=== PATIENT | female | born 1955 | race African-American/Black ===

== ENCOUNTER 2017-08-09 18:56 | Emergency (ER) | payer MEDICAID ==
[~2017-08-09] VITALS: Ht 152.4 cm; Wt 127.0 kg
[~2017-08-09 18:56] MED LIST: ACET-1465 PO; AMLO10TA80 PO; ATEN-42 PO; DICL75TA5 PO; FERR-63 PO; FLUT250D INH; FOLI-43 PO; FURO40TA5 PO; LEVO100T9 PO; LISI40TA4 PO; METH2.5T PO; POTA10CA42 PO; PROAIR 90 MCG INH; RANI150T7 PO; SILV20CR13 TP; TRAM50TA3 PO; VALS160T23 PO; VIT D2 PO
[2017-08-09 20:17] LABS: BASOPHILS % 1.6 % (0.0-2.0); EOSINOPHILS % 4.6 % (0.0-5.0); HEMATOCRIT. 32.6 % (36.0-48.0); HEMOGLOBIN. 10.4 g/dL (12.0-16.0); LYMPHOCYTES % 38.1 % (20.0-50.0); MEAN CORPUSCULAR HEMOGLOBIN 28.1 pg (28.0-32.0); MEAN CORPUSCULAR VOLUME 88.3 fL (81.0-99.0); MEAN PLATELET VOLUME 7.7 fl (7.4-10.4); NEUTROPHILS % 45.7 % (40.0-76.0); PLATELET 262 x1000/uL (130-400); RED BLOOD CELL COUNT 3.69 mill/uL (4.2-5.4); RED CELL DISTRIBUTION WIDTH 18.4 % (11.6-14.6)
[2017-08-09 20:19] LABS: CHLORIDE 105 mEq/L (98-107); PROTHROMBIN TIME 10.6 sec (9.4-11.6)
[2017-08-09 20:22] LABS: CARBON DIOXIDE 32 mEq/L (21-32)
[2017-08-09 20:28] LABS: TROPONIN I < 0.02 ng/mL (0.00-0.04)
[2017-08-10 08:36] VITALS: BP 143/77
== END 2017-08-10 08:36 | disposition home or self-care (01) ==
LOC: ER 19:44
DX: F41.0 Panic disorder [episodic paroxysmal anxiety] (principal); I11.0 Hypertensive heart disease with heart failure; I50.9 Heart failure, unspecified; R06.02 Shortness of breath; Z88.5 Allergy status to narcotic agent
CPT/HCPCS: 36415; 71010; 80053; 83880; 84484; 85025; 85610; 93005; 99285; Z7610

== ENCOUNTER 2018-11-26 21:08 | Inpatient (IN) | payer MEDICAID ==
[~2018-11-26] VITALS: Ht 149.9 cm; Wt 85.7 kg
[~2018-11-26 21:08] MED LIST changes: -VALS160T23 PO; +VALS160T28 PO
[2018-11-26] MEDS ORDERED: PREDNISONE 20MG TABLET PO STA (23:11)
[2018-11-26] MEDS ORDERED: IPRATROPIUM BROMIDE (0.02%) 0.5MG/2.5ML NEB HHN STA (23:11)
[2018-11-26] MEDS ORDERED: ALBUTEROL (0.083%) 2.5MG/3ML NEB HHN STA (23:11)
[2018-11-26 23:50] LABS: HEMATOCRIT. 33.7 % (36.0-48.0); HEMOGLOBIN. 10.1 g/dL (12.0-16.0); MEAN CORPUSCULAR HEMOGLOBIN 26.2 pg (28.0-32.0); MEAN CORPUSCULAR VOLUME 87.4 fL (81.0-99.0); MEAN PLATELET VOLUME 8.5 fl (7.4-10.4); PLATELET 281 x1000/uL (130-400); RED BLOOD CELL COUNT 3.86 mill/uL (4.2-5.4); RED CELL DISTRIBUTION WIDTH 22.9 % (11.6-14.6)
[2018-11-26 23:58] LABS: CHLORIDE 103 mEq/L (98-107)
[2018-11-27 04:26] LABS: NUCLEATED RED BLOOD CELLS 1 /100 WBC; PLATELET ESTIMATE NORMAL
[2018-11-27 05:00] VITALS: BP 95/66
[2018-11-27] MEDS ORDERED: METF-416 PO (05:42)
[2018-11-27] MEDS ORDERED: ONDANSETRON HCL 4MG/2ML INJ IV PRN (07:45)
[2018-11-27] MEDS ORDERED: HYDROCODONE/ACETAMINOPHEN 5/325MG TABLET PO PRN (07:45)
[2018-11-27] MEDS ORDERED: ACETAMINOPHEN 325MG TABLET PO PRN (07:45)
[2018-11-27] MEDS ORDERED: CLONIDINE 0.1MG TABLET PO PRN (07:45)
[2018-11-27 08:00] VITALS: BP 100/42
[2018-11-27] MEDS ORDERED: IPRATROPIUM/ALBUTEROL 0.5-3(2.5)MG/3ML NEB INH PRN (08:00)
[2018-11-27] MEDS: INSULIN LISPRO 100 UNITS/ML SUBCUT SCH ×4 (08:23→21:38)
[2018-11-27] MEDS: BLOOD SUGAR DIAGNOSTIC STRIP TEST SCH ×4 (09:00→21:14)
[2018-11-27] MEDS: CEFTRIAXONE 1 G PREMIX 50 ML IV SCH (09:00)
[2018-11-27 12:00] VITALS: BP 157/52
[2018-11-27] MEDS: NYSTATIN POWDER 15GM TOP SCH ×2 (14:33→17:00)
[2018-11-27] MEDS: HEPARIN 5000 UNITS/ML VIAL SUBCUT SCH ×2 (14:33→21:00)
[2018-11-27 16:00] VITALS: BP 98/58
[2018-11-27 20:00] VITALS: BP 107/55
[2018-11-28] VITALS: BP_SYST 118; BP_SYST 139; BP_DIAS 57; BP_DIAS 63
[2018-11-28 04:00] VITALS: BP 108/50
[2018-11-28] MEDS: BLOOD SUGAR DIAGNOSTIC STRIP TEST SCH ×4 (07:21→20:48)
[2018-11-28] MEDS: INSULIN LISPRO 100 UNITS/ML SUBCUT SCH ×4 (07:22→21:00)
[2018-11-28 08:00] VITALS: BP 102/60
[2018-11-28 08:02] LABS: BASOPHILS % 0.4 % (0.0-2.0); EOSINOPHILS % 0.3 % (0.0-5.0); HEMATOCRIT. 31.9 % (36.0-48.0); HEMOGLOBIN. 9.4 g/dL (12.0-16.0); LYMPHOCYTES % 7.7 % (20.0-50.0); MEAN CORPUSCULAR HEMOGLOBIN 25.7 pg (28.0-32.0); MEAN CORPUSCULAR VOLUME 87.6 fL (81.0-99.0); MEAN PLATELET VOLUME 8.7 fl (7.4-10.4); MONOCYTES % 7.9 % (2.0-8.0); NEUTROPHILS % 83.7 % (40.0-76.0); PLATELET 279 x1000/uL (130-400); RED BLOOD CELL COUNT 3.65 mill/uL (4.2-5.4); RED CELL DISTRIBUTION WIDTH 22.3 % (11.6-14.6)
[2018-11-28 08:11] LABS: CHLORIDE 103 mEq/L (98-107)
[2018-11-28] MEDS: CEFTRIAXONE 1 G PREMIX 50 ML IV SCH (08:56)
[2018-11-28] MEDS: NYSTATIN POWDER 15GM TOP SCH ×3 (08:57→17:24)
[2018-11-28] MEDS: LISINOPRIL 40MG TABLET PO SCH (10:30)
[2018-11-28] MEDS ORDERED: FUROSEMIDE 40MG TABLET PO SCH (10:30)
[2018-11-28] MEDS ORDERED: AMLODIPINE 10MG TABLET PO SCH (10:30)
[2018-11-28] MEDS ORDERED: METHOTREXATE SODIUM 2 . 5MG TABLET PO SCH (11:30)
[2018-11-28] MEDS: FERROUS SULFATE 325MG TABLET PO SCH (12:39)
[2018-11-28] MEDS: SILVER SULFADIAZINE 1% CREAM 25GM TOP SCH (12:40)
[2018-11-28] MEDS: SODIUM CHLORIDE 0.45% 1,000 ML IV SCH (12:40)
[2018-11-28 13:11] VITALS: BP 99/55
[2018-11-28 13:17] LABS: CREATINE KINASE 188 IU/L (26-192)
[2018-11-28 16:00] VITALS: BP 98/55
[2018-11-28 20:00] VITALS: BP 134/63
[2018-11-28] MEDS: DILTIAZEM HCL 30MG TABLET PO SCH (21:19)
[2018-11-28] MEDS: HEPARIN 5000 UNITS/ML VIAL SUBCUT SCH ×2 (21:20)
[2018-11-29] VITALS: BP 154/61
[2018-11-29] MEDS: SODIUM CHLORIDE 0.45% 1,000 ML IV SCH ×2 (02:40→10:19)
[2018-11-29 04:00] VITALS: BP 126/64
[2018-11-29] MEDS: DILTIAZEM HCL 30MG TABLET PO SCH ×3 (06:00→21:35)
[2018-11-29] MEDS: BLOOD SUGAR DIAGNOSTIC STRIP TEST SCH ×4 (06:06→20:27)
[2018-11-29] MEDS: LEVOTHYROXINE SODIUM 100MCG TABLET PO SCH (06:38)
[2018-11-29 07:32] LABS: BASOPHILS % 0.9 % (0.0-2.0); EOSINOPHILS % 2.3 % (0.0-5.0); HEMATOCRIT. 34.1 % (36.0-48.0); HEMOGLOBIN. 9.9 g/dL (12.0-16.0); LYMPHOCYTES % 7.6 % (20.0-50.0); MEAN CORPUSCULAR HEMOGLOBIN 25.8 pg (28.0-32.0); MEAN CORPUSCULAR VOLUME 88.8 fL (81.0-99.0); MEAN PLATELET VOLUME 8.7 fl (7.4-10.4); MONOCYTES % 8.2 % (2.0-8.0); PLATELET 279 x1000/uL (130-400); RED BLOOD CELL COUNT 3.84 mill/uL (4.2-5.4); RED CELL DISTRIBUTION WIDTH 22.6 % (11.6-14.6)
[2018-11-29] MEDS: INSULIN LISPRO 100 UNITS/ML SUBCUT SCH ×4 (07:50→20:27)
[2018-11-29 08:00] VITALS: BP 96/57
[2018-11-29] MEDS ORDERED: METHOTREXATE SODIUM 2 . 5MG TABLET PO SCH (09:00)
[2018-11-29] MEDS: SILVER SULFADIAZINE 1% CREAM 25GM TOP SCH (09:00)
[2018-11-29] MEDS: LISINOPRIL 40MG TABLET PO SCH (09:00)
[2018-11-29] MEDS: HEPARIN 5000 UNITS/ML VIAL SUBCUT SCH ×2 (10:20→20:19)
[2018-11-29] MEDS: FERROUS SULFATE 325MG TABLET PO SCH (10:20)
[2018-11-29] MEDS: CEFTRIAXONE 1 G PREMIX 50 ML IV SCH (10:21)
[2018-11-29] MEDS: NYSTATIN POWDER 15GM TOP SCH ×3 (10:21→17:19)
[2018-11-29 12:00] VITALS: BP 98/60
[2018-11-29 16:00] VITALS: BP 100/56
[2018-11-29 20:00] VITALS: BP 136/70
[2018-11-30] VITALS (53 sets, daily range): BP systolic 80–158; BP diastolic 38–82
[2018-11-30] MEDS: DILTIAZEM HCL 30MG TABLET PO SCH ×3 (05:42→22:00)
[2018-11-30] MEDS: LEVOTHYROXINE SODIUM 100MCG TABLET PO SCH ×2 (06:30→07:50)
[2018-11-30] MEDS: BLOOD SUGAR DIAGNOSTIC STRIP TEST SCH ×5 (06:30→21:24)
[2018-11-30 07:42] LABS: BG BASE EXCESS 4.6 mmol/L (-2.0-2.0); BG CARBOXYHEMOGLOBIN 1.7 % (0.5-1.5); BG DEOXYHEMOGLOBIN 9.3 % (0.0-5.0); BG FRACTION INSPIRED OXYGEN 100; BG HCO3 ACT 35.9 mmol/L (22.0-26.0); BG METHEMOGLOBIN 0.3 % (0.0-1.5); BG OXYGEN SATURATION 90.5 % (92.0-98.5); BG OXYHEMOGLOBIN 88.7 % (94.0-97.0); BG PCO2 98.6 mmHg (35.0-45.0); BG PH 7.179 (7.350-7.450); BG PO2 71.1 mmHg (75.0-100.0); BG SAMPLE SITE RIGHT RADIAL; BG TOTAL HEMOGLOBIN 12.3 g/dL (12.0-18.0); BG VENT MODE MASK - NRB
[2018-11-30 08:01] LABS: CHLORIDE 103 mEq/L (98-107)
[2018-11-30] MEDS: INSULIN LISPRO 100 UNITS/ML SUBCUT SCH ×4 (08:20→21:59)
[2018-11-30] MEDS ORDERED: MIDAZOLAM HCL 2 MG/2 ML VIAL ONE (08:25)
[2018-11-30] MEDS ORDERED: MIDAZOLAM HCL 2 MG/2 ML VIAL IV SCH (08:30)
[2018-11-30 08:51] LABS: HEMATOCRIT. 38.4 % (36.0-48.0); HEMOGLOBIN. 11.3 g/dL (12.0-16.0); MEAN CORPUSCULAR HEMOGLOBIN 25.8 pg (28.0-32.0); MEAN CORPUSCULAR VOLUME 87.9 fL (81.0-99.0); MEAN PLATELET VOLUME 8.6 fl (7.4-10.4); PLATELET 303 x1000/uL (130-400); RED BLOOD CELL COUNT 4.37 mill/uL (4.2-5.4); RED CELL DISTRIBUTION WIDTH 22.9 % (11.6-14.6)
[2018-11-30] MEDS: LISINOPRIL 40MG TABLET PO SCH (09:00)
[2018-11-30] MEDS: CEFTRIAXONE 1 G PREMIX 50 ML IV SCH (09:51)
[2018-11-30] MEDS: FERROUS SULFATE 325MG TABLET PO SCH (09:51)
[2018-11-30] MEDS: NYSTATIN POWDER 15GM TOP SCH ×3 (09:52→17:00)
[2018-11-30] MEDS: SILVER SULFADIAZINE 1% CREAM 25GM TOP SCH (09:52)
[2018-11-30] MEDS: HEPARIN 5000 UNITS/ML VIAL SUBCUT SCH ×2 (09:52→21:07)
[2018-11-30] MEDS: PROPOFOL 10MG/ML 100ML 100 ML IV PRN ×4 (09:52→19:18)
[2018-11-30] MEDS: NOREPINEPHRINE 4 MG in DEXT 5% WATER 246 ML IV PRN (09:53)
[2018-11-30] MEDS ORDERED: LIDOCAINE HCL 1% 20ML VIAL (Pyxis) INJ ONE (10:41)
[2018-11-30] MEDS ORDERED: FUROSEMIDE 40MG/4ML VIAL IVP NR (10:45)
[2018-11-30 11:09] LABS: PLATELET ESTIMATE NORMAL
[2018-11-30] MEDS: IPRATROPIUM/ALBUTEROL 0.5-3(2.5)MG/3ML NEB HHN SCH ×3 (11:41→20:39)
[2018-11-30] MEDS ORDERED: SUCCINYLCHOLINE CHLORIDE 200MG/10ML IV ONE (11:42)
[2018-11-30] MEDS ORDERED: ETOMIDATE 2MG/ML 10ML VIAL IV ONE (11:42)
[2018-11-30 11:43] LABS: BG BASE EXCESS 3.5 mmol/L (-2.0-2.0); BG CARBOXYHEMOGLOBIN 0.9 % (0.5-1.5); BG DEOXYHEMOGLOBIN 0.6 % (0.0-5.0); BG FRACTION INSPIRED OXYGEN 100; BG HCO3 ACT 30.7 mmol/L (22.0-26.0); BG METHEMOGLOBIN 0.3 % (0.0-1.5); BG OXYGEN SATURATION 99.4 % (92.0-98.5); BG OXYHEMOGLOBIN 98.2 % (94.0-97.0); BG PCO2 60.2 mmHg (35.0-45.0); BG PH 7.326 (7.350-7.450); BG PO2 244.4 mmHg (75.0-100.0); BG SAMPLE SITE LEFT RADIAL; BG TIDAL VOLUME(mL) 550 mL; BG TOTAL HEMOGLOBIN 11.3 g/dL (12.0-18.0); BG VENT MODE VENT - A/C; BG VENT RATE 18 set
[2018-11-30] MEDS: FAMOTIDINE 20MG/2ML VIAL IV SCH ×2 (11:51→21:06)
[2018-11-30] MEDS: LORATADINE 10MG TABLET PO SCH (11:51)
[2018-11-30] MEDS: METHYLPREDNISOLONE SOD SUCC 40 MG/ML VIAL IV SCH ×2 (11:51→18:40)
[2018-11-30] MEDS: PIPERACILLIN/TAZ 3.375G PREMIX 50 ML IV SCH ×2 (12:03→18:40)
[2018-11-30 12:39] LABS: INR 1.1; PARTIAL THROMBOPLASTIN TIME 22.6 sec (23.4-31.0); PROTHROMBIN TIME 10.6 sec (9.1-11.1)
[2018-11-30] MEDS ORDERED: IOHEXOL-350 100 ML BOTTLE ONE (13:25)
[2018-11-30] MEDS: ACETYLCYSTEINE 100MG/ML 10% VIAL 4ML INH SCH (16:00)
[2018-11-30] MEDS: MONTELUKAST SODIUM 10MG TABLET PO SCH (18:40)
[2018-11-30 19:48] LABS: CLARITY URINE CLEAR (CLEAR); COLOR URINE YELLOW (YELLOW); KETONES URINE NEGATIVE (NEGATIVE); LEUKOCYTE ESTERASE URINE NEGATIVE (NEGATIVE); NITRITE URINE NEGATIVE (NEGATIVE); OCCULT BLOOD URINE TRACE (NEGATIVE); PROTEIN URINE NEGATIVE (NEGATIVE); SPECIFIC GRAVITY URINE 1.014 (1.005-1.030); UROBILINOGEN URINE 0.2 E.U./dL (0.2-1.0)
[2018-12-01] VITALS (81 sets, daily range): BP systolic 49–149; BP diastolic 26–88
[2018-12-01] MEDS: IPRATROPIUM/ALBUTEROL 0.5-3(2.5)MG/3ML NEB HHN SCH ×5 (00:16→15:54)
[2018-12-01] MEDS: ACETYLCYSTEINE 100MG/ML 10% VIAL 4ML INH SCH ×2 (00:16→07:29)
[2018-12-01] MEDS: PROPOFOL 10MG/ML 100ML 100 ML IV PRN ×3 (00:17→20:48)
[2018-12-01] MEDS: METHYLPREDNISOLONE SOD SUCC 40 MG/ML VIAL IV SCH ×4 (00:22→22:54)
[2018-12-01] MEDS: PIPERACILLIN/TAZ 3.375G PREMIX 50 ML IV SCH ×4 (00:27→18:54)
[2018-12-01 05:44] LABS: CHLORIDE 101 mEq/L (98-107)
[2018-12-01] MEDS: DILTIAZEM HCL 30MG TABLET PO SCH ×3 (06:00→22:53)
[2018-12-01 07:41] LABS: HEMATOCRIT 32.4 % (36.0-48.0); HEMOGLOBIN 9.6 g/dL (12.0-16.0); MEAN CORPUSCULAR HEMOGLOBIN 25.1 pg (28.0-32.0); MEAN CORPUSCULAR VOLUME 84.6 fL (81.0-99.0); PLATELET 255 x1000/uL (130-400); RED BLOOD CELL COUNT 3.83 mill/uL (4.2-5.4)
[2018-12-01] MEDS: BLOOD SUGAR DIAGNOSTIC STRIP TEST SCH ×3 (07:50→18:54)
[2018-12-01 08:10] LABS: BG BASE EXCESS 7.6 mmol/L (-2.0-2.0); BG CARBOXYHEMOGLOBIN 0.7 % (0.5-1.5); BG DEOXYHEMOGLOBIN 2.4 % (0.0-5.0); BG FRACTION INSPIRED OXYGEN 50; BG HCO3 ACT 31.3 mmol/L (22.0-26.0); BG METHEMOGLOBIN 0.2 % (0.0-1.5); BG OXYGEN SATURATION 97.6 % (92.0-98.5); BG OXYHEMOGLOBIN 96.7 % (94.0-97.0); BG PCO2 40.6 mmHg (35.0-45.0); BG PH 7.505 (7.350-7.450); BG PO2 94.9 mmHg (75.0-100.0); BG SAMPLE SITE RIGHT RADIAL; BG TIDAL VOLUME(mL) 550 mL; BG TOTAL HEMOGLOBIN 10.4 g/dL (12.0-18.0); BG VENT MODE VENT - A/C; BG VENT RATE 18 set
[2018-12-01] MEDS: FAMOTIDINE 20MG/2ML VIAL IV SCH ×2 (08:50→20:48)
[2018-12-01] MEDS: CEFTRIAXONE 1 G PREMIX 50 ML IV SCH (08:51)
[2018-12-01] MEDS: INSULIN LISPRO 100 UNITS/ML SUBCUT SCH ×3 (08:53→18:54)
[2018-12-01] MEDS: LORATADINE 10MG TABLET PO SCH (08:53)
[2018-12-01] MEDS: FERROUS SULFATE 325MG TABLET PO SCH (08:54)
[2018-12-01] MEDS: SILVER SULFADIAZINE 1% CREAM 25GM TOP SCH (08:54)
[2018-12-01] MEDS: LISINOPRIL 40MG TABLET PO SCH (08:54)
[2018-12-01] MEDS: LEVOTHYROXINE SODIUM 100MCG TABLET PO SCH (08:54)
[2018-12-01] MEDS: HEPARIN 5000 UNITS/ML VIAL SUBCUT SCH ×2 (08:54→21:00)
[2018-12-01] MEDS: NYSTATIN POWDER 15GM TOP SCH ×3 (08:54→17:00)
[2018-12-01] MEDS: MONTELUKAST SODIUM 10MG TABLET PO SCH (17:00)
[2018-12-01] MEDS: DOCUSATE SODIUM SUGAR FREE 100MG/10ML UDC NG SCH (20:20)
[2018-12-01] MEDS ORDERED: INSULIN LISPRO 100 UNITS/ML SUBCUT SCH (21:00)
[2018-12-02] VITALS (17 sets, daily range): BP systolic 95–121; BP diastolic 59–84
[2018-12-02] MEDS: PIPERACILLIN/TAZ 3.375G PREMIX 50 ML IV SCH ×4 (00:26→18:15)
[2018-12-02] MEDS: INSULIN LISPRO 100 UNITS/ML SUBCUT SCH ×4 (00:27→18:00)
[2018-12-02] MEDS: BLOOD SUGAR DIAGNOSTIC STRIP TEST SCH ×4 (00:27→18:01)
[2018-12-02] MEDS: ACETYLCYSTEINE 100MG/ML 10% VIAL 4ML INH SCH ×3 (00:38→16:02)
[2018-12-02] MEDS: IPRATROPIUM/ALBUTEROL 0.5-3(2.5)MG/3ML NEB HHN SCH ×6 (00:38→20:44)
[2018-12-02] MEDS: PROPOFOL 10MG/ML 100ML 100 ML IV PRN ×6 (01:23→22:02)
[2018-12-02] MEDS: DILTIAZEM HCL 30MG TABLET PO SCH ×3 (06:00→22:03)
[2018-12-02] MEDS: METHYLPREDNISOLONE SOD SUCC 40 MG/ML VIAL IV SCH ×3 (06:20→22:03)
[2018-12-02 07:02] LABS: HEMATOCRIT. 31.5 % (36.0-48.0); HEMOGLOBIN. 9.7 g/dL (12.0-16.0); MEAN CORPUSCULAR HEMOGLOBIN 25.8 pg (28.0-32.0); MEAN CORPUSCULAR VOLUME 84.4 fL (81.0-99.0); MEAN PLATELET VOLUME 8.5 fl (7.4-10.4); PLATELET 243 x1000/uL (130-400); RED BLOOD CELL COUNT 3.74 mill/uL (4.2-5.4); RED CELL DISTRIBUTION WIDTH 22.8 % (11.6-14.6)
[2018-12-02 08:10] LABS: PLATELET ESTIMATE NORMAL
[2018-12-02 08:57] LABS: BG BASE EXCESS 6.9 mmol/L (-2.0-2.0); BG CARBOXYHEMOGLOBIN 0.5 % (0.5-1.5); BG DEOXYHEMOGLOBIN 2.5 % (0.0-5.0); BG FRACTION INSPIRED OXYGEN 40; BG HCO3 ACT 31.3 mmol/L (22.0-26.0); BG METHEMOGLOBIN 0.3 % (0.0-1.5); BG OXYGEN SATURATION 97.5 % (92.0-98.5); BG OXYHEMOGLOBIN 96.7 % (94.0-97.0); BG PCO2 44.1 mmHg (35.0-45.0); BG PH 7.469 (7.350-7.450); BG PO2 96.3 mmHg (75.0-100.0); BG SAMPLE SITE RIGHT RADIAL; BG TIDAL VOLUME(mL) 550 mL; BG VENT MODE VENT - A/C; BG VENT RATE 14 set
[2018-12-02] MEDS ORDERED: POTASSIUM CHLORIDE 20MEQ/PACKET NG NR (09:45)
[2018-12-02] MEDS ORDERED: LACTULOSE 20G/30ML UDC PO NR (10:00)
[2018-12-02] MEDS ORDERED: BISACODYL 10MG SUPP PR NR (10:00)
[2018-12-02] MEDS ORDERED: FUROSEMIDE 40MG/4ML VIAL IVP NR (10:05)
[2018-12-02] MEDS: FAMOTIDINE 20MG/2ML VIAL IV SCH (10:50)
[2018-12-02] MEDS: HEPARIN 5000 UNITS/ML VIAL SUBCUT SCH ×2 (10:50→22:02)
[2018-12-02] MEDS: DOCUSATE SODIUM SUGAR FREE 100MG/10ML UDC NG SCH (10:50)
[2018-12-02] MEDS: LEVOTHYROXINE SODIUM 100MCG TABLET PO SCH (10:51)
[2018-12-02] MEDS: LORATADINE 10MG TABLET PO SCH (10:51)
[2018-12-02] MEDS: FERROUS SULFATE 325MG TABLET PO SCH (10:51)
[2018-12-02] MEDS: SILVER SULFADIAZINE 1% CREAM 25GM TOP SCH (11:20)
[2018-12-02] MEDS: NYSTATIN POWDER 15GM TOP SCH ×3 (11:20→17:55)
[2018-12-02] MEDS: CEFTRIAXONE 1 G PREMIX 50 ML IV SCH (12:45)
[2018-12-02] MEDS: INSULIN GLARGINE UD 100 UNITS/ML SYR SUBCUT SCH ×2 (15:36→22:05)
[2018-12-02] MEDS: MONTELUKAST SODIUM 10MG TABLET PO SCH (18:15)
[2018-12-03] VITALS (40 sets, daily range): BP systolic 105–144; BP diastolic 49–83
[2018-12-03] MEDS: IPRATROPIUM/ALBUTEROL 0.5-3(2.5)MG/3ML NEB HHN SCH ×6 (00:27→20:17)
[2018-12-03] MEDS: ACETYLCYSTEINE 100MG/ML 10% VIAL 4ML INH SCH ×4 (00:28→15:26)
[2018-12-03] MEDS: INSULIN LISPRO 100 UNITS/ML SUBCUT SCH ×4 (00:54→18:00)
[2018-12-03] MEDS: PROPOFOL 10MG/ML 100ML 100 ML IV PRN ×2 (00:55→05:11)
[2018-12-03] MEDS: PIPERACILLIN/TAZ 3.375G PREMIX 50 ML IV SCH ×4 (03:30→18:45)
[2018-12-03] MEDS: DILTIAZEM HCL 30MG TABLET PO SCH ×3 (05:04→21:12)
[2018-12-03] MEDS: METHYLPREDNISOLONE SOD SUCC 40 MG/ML VIAL IV SCH ×3 (05:04→21:11)
[2018-12-03] MEDS: BLOOD SUGAR DIAGNOSTIC STRIP TEST SCH ×4 (06:08→18:43)
[2018-12-03 06:50] LABS: HEMATOCRIT. 33.1 % (36.0-48.0); HEMOGLOBIN. 9.9 g/dL (12.0-16.0); MEAN CORPUSCULAR HEMOGLOBIN 25.3 pg (28.0-32.0); MEAN CORPUSCULAR VOLUME 84.4 fL (81.0-99.0); MEAN PLATELET VOLUME 7.9 fl (7.4-10.4); PLATELET 231 x1000/uL (130-400); RED BLOOD CELL COUNT 3.93 mill/uL (4.2-5.4); RED CELL DISTRIBUTION WIDTH 23.3 % (11.6-14.6)
[2018-12-03 06:59] LABS: CHLORIDE 102 mEq/L (98-107)
[2018-12-03] MEDS: LEVOTHYROXINE SODIUM 100MCG TABLET PO SCH (07:50)
[2018-12-03 08:14] LABS: BG BASE EXCESS 9.7 mmol/L (-2.0-2.0); BG CARBOXYHEMOGLOBIN 0.5 % (0.5-1.5); BG DEOXYHEMOGLOBIN 2.8 % (0.0-5.0); BG FRACTION INSPIRED OXYGEN 40; BG HCO3 ACT 35.4 mmol/L (22.0-26.0); BG METHEMOGLOBIN 0.3 % (0.0-1.5); BG OXYGEN SATURATION 97.2 % (92.0-98.5); BG OXYHEMOGLOBIN 96.4 % (94.0-97.0); BG PCO2 53.9 mmHg (35.0-45.0); BG PH 7.435 (7.350-7.450); BG PO2 102.2 mmHg (75.0-100.0); BG PRESSURE SUPPORT 12; BG SAMPLE SITE RIGHT RADIAL; BG TIDAL VOLUME(mL) 550 mL; BG TOTAL HEMOGLOBIN 10.3 g/dL (12.0-18.0); BG VENT MODE VENT - SIMV; BG VENT RATE 10 set
[2018-12-03] MEDS: NYSTATIN POWDER 15GM TOP SCH ×3 (09:00→17:00)
[2018-12-03] MEDS: CEFTRIAXONE 1 G PREMIX 50 ML IV SCH (09:36)
[2018-12-03] MEDS: LORATADINE 10MG TABLET PO SCH (09:36)
[2018-12-03] MEDS: FAMOTIDINE 20MG/2ML VIAL IV SCH (09:36)
[2018-12-03] MEDS: DOCUSATE SODIUM SUGAR FREE 100MG/10ML UDC NG SCH (09:36)
[2018-12-03] MEDS: FERROUS SULFATE 325MG TABLET PO SCH (09:37)
[2018-12-03] MEDS: HEPARIN 5000 UNITS/ML VIAL SUBCUT SCH ×2 (09:38→21:12)
[2018-12-03] MEDS: SILVER SULFADIAZINE 1% CREAM 25GM TOP SCH (09:39)
[2018-12-03 10:10] LABS: PLATELET ESTIMATE NORMAL
[2018-12-03] MEDS ORDERED: POTASSIUM CHLORIDE 20MEQ TABLET SR PO SCH (11:30)
[2018-12-03] MEDS: MONTELUKAST SODIUM 10MG TABLET PO SCH (17:00)
[2018-12-03] MEDS: INSULIN GLARGINE UD 100 UNITS/ML SYR SUBCUT SCH (21:22)
[2018-12-03] MEDS: PROPOFOL 10MG/ML 100ML 100 ML IV SCH (23:22)
[2018-12-04] VITALS (49 sets, daily range): BP systolic 110–157; BP diastolic 67–97
[2018-12-04] MEDS: IPRATROPIUM/ALBUTEROL 0.5-3(2.5)MG/3ML NEB HHN SCH ×6 (00:16→20:03)
[2018-12-04] MEDS: ACETYLCYSTEINE 100MG/ML 10% VIAL 4ML INH SCH ×3 (00:17→16:24)
[2018-12-04] MEDS: PIPERACILLIN/TAZ 3.375G PREMIX 50 ML IV SCH ×4 (00:32→17:48)
[2018-12-04] MEDS: BLOOD SUGAR DIAGNOSTIC STRIP TEST SCH ×4 (00:38→18:43)
[2018-12-04] MEDS: INSULIN LISPRO 100 UNITS/ML SUBCUT SCH ×4 (00:43→18:47)
[2018-12-04] MEDS: PROPOFOL 10MG/ML 100ML 100 ML IV SCH ×3 (02:55→14:48)
[2018-12-04 05:56] LABS: HEMATOCRIT. 38.8 % (36.0-48.0); HEMOGLOBIN. 11.6 g/dL (12.0-16.0); MEAN CORPUSCULAR HEMOGLOBIN 25.6 pg (28.0-32.0); MEAN CORPUSCULAR VOLUME 85.6 fL (81.0-99.0); MEAN PLATELET VOLUME 8.5 fl (7.4-10.4); PLATELET 235 x1000/uL (130-400); RED BLOOD CELL COUNT 4.53 mill/uL (4.2-5.4); RED CELL DISTRIBUTION WIDTH 22.7 % (11.6-14.6)
[2018-12-04] MEDS: LEVOTHYROXINE SODIUM 100MCG TABLET PO SCH (06:57)
[2018-12-04] MEDS: METHYLPREDNISOLONE SOD SUCC 40 MG/ML VIAL IV SCH ×3 (06:57→21:12)
[2018-12-04] MEDS: DILTIAZEM HCL 30MG TABLET PO SCH ×3 (06:58→21:13)
[2018-12-04 07:16] LABS: PHOSPHORUS 5.3 mg/dL (2.5-4.9)
[2018-12-04] MEDS: SILVER SULFADIAZINE 1% CREAM 25GM TOP SCH (09:00)
[2018-12-04 09:45] LABS: BG CARBOXYHEMOGLOBIN 1.2 % (0.5-1.5); BG FRACTION INSPIRED OXYGEN 40; BG HCO3 ACT 34.1 mmol/L (22.0-26.0); BG METHEMOGLOBIN 0.3 % (0.0-1.5); BG OXYGEN SATURATION 94.9 % (92.0-98.5); BG OXYHEMOGLOBIN 93.5 % (94.0-97.0); BG PCO2 54.7 mmHg (35.0-45.0); BG PH 7.413 (7.350-7.450); BG PO2 75.9 mmHg (75.0-100.0); BG PRESSURE SUPPORT 12; BG SAMPLE SITE RIGHT RADIAL; BG TIDAL VOLUME(mL) 550 mL; BG TOTAL HEMOGLOBIN 12.5 g/dL (12.0-18.0); BG VENT MODE VENT - SIMV; BG VENT RATE 6 set
[2018-12-04] MEDS: LORATADINE 10MG TABLET PO SCH (09:54)
[2018-12-04] MEDS: FAMOTIDINE 20MG/2ML VIAL IV SCH (09:55)
[2018-12-04] MEDS: FERROUS SULFATE 325MG TABLET PO SCH (09:55)
[2018-12-04] MEDS: DOCUSATE SODIUM SUGAR FREE 100MG/10ML UDC NG SCH (09:55)
[2018-12-04] MEDS: HEPARIN 5000 UNITS/ML VIAL SUBCUT SCH ×2 (09:56→21:12)
[2018-12-04] MEDS: CEFTRIAXONE 1 G PREMIX 50 ML IV SCH (09:56)
[2018-12-04] MEDS: INSULIN GLARGINE UD 100 UNITS/ML SYR SUBCUT SCH ×2 (09:57→21:15)
[2018-12-04] MEDS: NYSTATIN POWDER 15GM TOP SCH ×3 (10:28→17:09)
[2018-12-04 13:40] LABS: PLATELET ESTIMATE NORMAL
[2018-12-04] MEDS ORDERED: POTASSIUM CHLORIDE 20MEQ/PACKET PO NR (15:15)
[2018-12-04] MEDS: MONTELUKAST SODIUM 10MG TABLET PO SCH (17:06)
[2018-12-04] MEDS: PROPOFOL 10MG/ML 100ML 100 ML IV PRN (20:01)
[2018-12-04] MEDS: SILDENAFIL CITRATE 20MG TABLET PO SCH (21:13)
[2018-12-05] VITALS (30 sets, daily range): BP systolic 63–114; BP diastolic 44–69
[2018-12-05] MEDS: IPRATROPIUM/ALBUTEROL 0.5-3(2.5)MG/3ML NEB HHN SCH ×6 (00:26→20:53)
[2018-12-05] MEDS: ACETYLCYSTEINE 100MG/ML 10% VIAL 4ML INH SCH ×3 (00:27→14:00)
[2018-12-05] MEDS: PIPERACILLIN/TAZ 3.375G PREMIX 50 ML IV SCH ×2 (00:30→05:46)
[2018-12-05] MEDS: BLOOD SUGAR DIAGNOSTIC STRIP TEST SCH ×4 (00:30→18:33)
[2018-12-05] MEDS: INSULIN LISPRO 100 UNITS/ML SUBCUT SCH ×4 (00:40→18:00)
[2018-12-05] MEDS: PROPOFOL 10MG/ML 100ML 100 ML IV PRN ×2 (01:06→07:29)
[2018-12-05 05:29] LABS: HEMATOCRIT. 38.2 % (36.0-48.0); HEMOGLOBIN. 11.3 g/dL (12.0-16.0); MEAN CORPUSCULAR HEMOGLOBIN 25.3 pg (28.0-32.0); MEAN CORPUSCULAR VOLUME 85.4 fL (81.0-99.0); MEAN PLATELET VOLUME 8.5 fl (7.4-10.4); PLATELET 233 x1000/uL (130-400); RED BLOOD CELL COUNT 4.47 mill/uL (4.2-5.4); RED CELL DISTRIBUTION WIDTH 23.6 % (11.6-14.6)
[2018-12-05] MEDS: METHYLPREDNISOLONE SOD SUCC 40 MG/ML VIAL IV SCH ×2 (05:46→18:31)
[2018-12-05] MEDS: SILDENAFIL CITRATE 20MG TABLET PO SCH ×3 (05:46→21:26)
[2018-12-05] MEDS: DILTIAZEM HCL 30MG TABLET PO SCH ×3 (05:46→21:25)
[2018-12-05 07:50] LABS: PLATELET ESTIMATE NORMAL
[2018-12-05] MEDS: FERROUS SULFATE 325MG TABLET PO SCH (09:40)
[2018-12-05] MEDS: DOCUSATE SODIUM SUGAR FREE 100MG/10ML UDC NG SCH (09:40)
[2018-12-05] MEDS: LORATADINE 10MG TABLET PO SCH (09:40)
[2018-12-05] MEDS: FAMOTIDINE 20MG/2ML VIAL IV SCH (09:53)
[2018-12-05] MEDS: LEVOTHYROXINE SODIUM 100MCG TABLET PO SCH (09:56)
[2018-12-05] MEDS: HEPARIN 5000 UNITS/ML VIAL SUBCUT SCH ×2 (09:57→21:24)
[2018-12-05] MEDS: INSULIN GLARGINE UD 100 UNITS/ML SYR SUBCUT SCH ×2 (09:58→21:25)
[2018-12-05] MEDS: LEVOFLOXACIN 750MG PREMIX 150 ML IV SCH (10:04)
[2018-12-05] MEDS: NYSTATIN POWDER 15GM TOP SCH ×3 (10:12→18:33)
[2018-12-05] MEDS: SILVER SULFADIAZINE 1% CREAM 25GM TOP SCH (10:13)
[2018-12-05] MEDS: MONTELUKAST SODIUM 10MG TABLET PO SCH (18:30)
[2018-12-06] VITALS (74 sets, daily range): BP systolic 72–146; BP diastolic 47–81
[2018-12-06] MEDS: IPRATROPIUM/ALBUTEROL 0.5-3(2.5)MG/3ML NEB HHN SCH ×6 (00:25→20:28)
[2018-12-06] MEDS: INSULIN LISPRO 100 UNITS/ML SUBCUT SCH ×4 (01:34→17:45)
[2018-12-06] MEDS: SILDENAFIL CITRATE 20MG TABLET PO SCH ×3 (05:10→21:38)
[2018-12-06] MEDS: DILTIAZEM HCL 30MG TABLET PO SCH ×3 (05:11→21:40)
[2018-12-06] MEDS: BLOOD SUGAR DIAGNOSTIC STRIP TEST SCH ×4 (05:11→17:45)
[2018-12-06] MEDS: NOREPINEPHRINE 4 MG in DEXT 5% WATER 246 ML IV PRN (05:48)
[2018-12-06 06:12] LABS: HEMATOCRIT. 35.8 % (36.0-48.0); HEMOGLOBIN. 10.4 g/dL (12.0-16.0); MEAN CORPUSCULAR VOLUME 85.8 fL (81.0-99.0); PLATELET 234 x1000/uL (130-400); RED BLOOD CELL COUNT 4.17 mill/uL (4.2-5.4); RED CELL DISTRIBUTION WIDTH 23.7 % (11.6-14.6)
[2018-12-06 08:02] LABS: PLATELET ESTIMATE NORMAL
[2018-12-06] MEDS ORDERED: POTASSIUM CHLORIDE 20MEQ/PACKET PO SCH (08:30)
[2018-12-06 08:55] LABS: BG BASE EXCESS 5.5 mmol/L (-2.0-2.0); BG CARBOXYHEMOGLOBIN 0.9 % (0.5-1.5); BG DEOXYHEMOGLOBIN 5.4 % (0.0-5.0); BG FRACTION INSPIRED OXYGEN 40; BG HCO3 ACT 32.4 mmol/L (22.0-26.0); BG METHEMOGLOBIN 0.3 % (0.0-1.5); BG OXYGEN SATURATION 94.5 % (92.0-98.5); BG OXYHEMOGLOBIN 93.4 % (94.0-97.0); BG PCO2 58.7 mmHg (35.0-45.0); BG SAMPLE SITE LEFT RADIAL; BG TIDAL VOLUME(mL) 550 mL; BG TOTAL HEMOGLOBIN 11.8 g/dL (12.0-18.0); BG VENT MODE VENT - A/C; BG VENT RATE 10 set
[2018-12-06] MEDS ORDERED: LORAZEPAM 2MG/ML CPJ IV NR (09:15)
[2018-12-06] MEDS: FAMOTIDINE 20MG/2ML VIAL IV SCH (09:36)
[2018-12-06] MEDS: LORATADINE 10MG TABLET PO SCH (09:36)
[2018-12-06] MEDS: LEVOTHYROXINE SODIUM 100MCG TABLET PO SCH (09:36)
[2018-12-06] MEDS: DOCUSATE SODIUM SUGAR FREE 100MG/10ML UDC NG SCH (09:36)
[2018-12-06] MEDS: FERROUS SULFATE 325MG TABLET PO SCH (09:36)
[2018-12-06] MEDS: METHYLPREDNISOLONE SOD SUCC 40 MG/ML VIAL IV SCH ×2 (09:37→17:45)
[2018-12-06] MEDS: SILVER SULFADIAZINE 1% CREAM 25GM TOP SCH (09:37)
[2018-12-06] MEDS: NYSTATIN POWDER 15GM TOP SCH ×3 (09:37→17:45)
[2018-12-06] MEDS: HEPARIN 5000 UNITS/ML VIAL SUBCUT SCH ×2 (09:37→21:38)
[2018-12-06] MEDS: INSULIN GLARGINE UD 100 UNITS/ML SYR SUBCUT SCH ×2 (09:43→21:40)
[2018-12-06] MEDS ORDERED: LORAZEPAM 2MG/ML CPJ IV PRN (10:00)
[2018-12-06] MEDS: MONTELUKAST SODIUM 10MG TABLET PO SCH (17:45)
[2018-12-07] VITALS (73 sets, daily range): BP systolic 83–124; BP diastolic 47–94
[2018-12-07] MEDS: IPRATROPIUM/ALBUTEROL 0.5-3(2.5)MG/3ML NEB HHN SCH ×6 (00:20→20:05)
[2018-12-07] MEDS: DILTIAZEM HCL 30MG TABLET PO SCH ×3 (05:14→21:36)
[2018-12-07] MEDS: SILDENAFIL CITRATE 20MG TABLET PO SCH ×3 (05:14→21:36)
[2018-12-07] MEDS: INSULIN LISPRO 100 UNITS/ML SUBCUT SCH ×4 (05:14→18:31)
[2018-12-07] MEDS: BLOOD SUGAR DIAGNOSTIC STRIP TEST SCH ×4 (05:14→18:31)
[2018-12-07 05:43] LABS: BASOPHILS % 0.5 % (0.0-2.0); EOSINOPHILS % 0.3 % (0.0-5.0); HEMATOCRIT. 32.7 % (36.0-48.0); HEMOGLOBIN. 9.7 g/dL (12.0-16.0); LYMPHOCYTES % 9.8 % (20.0-50.0); MEAN CORPUSCULAR HEMOGLOBIN 25.5 pg (28.0-32.0); MEAN CORPUSCULAR VOLUME 86.4 fL (81.0-99.0); MEAN PLATELET VOLUME 8.9 fl (7.4-10.4); NEUTROPHILS % 83.4 % (40.0-76.0); PLATELET 219 x1000/uL (130-400); RED BLOOD CELL COUNT 3.78 mill/uL (4.2-5.4); RED CELL DISTRIBUTION WIDTH 23.9 % (11.6-14.6)
[2018-12-07 07:08] LABS: PLATELET ESTIMATE NORMAL
[2018-12-07] MEDS: FAMOTIDINE 20MG/2ML VIAL IV SCH (08:50)
[2018-12-07] MEDS: METHYLPREDNISOLONE SOD SUCC 40 MG/ML VIAL IV SCH ×2 (08:50→18:31)
[2018-12-07] MEDS: FERROUS SULFATE 325MG TABLET PO SCH (08:51)
[2018-12-07] MEDS: LEVOTHYROXINE SODIUM 100MCG TABLET PO SCH (08:52)
[2018-12-07] MEDS: LORATADINE 10MG TABLET PO SCH (08:52)
[2018-12-07] MEDS: FUROSEMIDE 40MG TABLET PO SCH (08:53)
[2018-12-07] MEDS: LEVOFLOXACIN 750MG PREMIX 150 ML IV SCH (08:55)
[2018-12-07] MEDS: HEPARIN 5000 UNITS/ML VIAL SUBCUT SCH ×2 (08:55→21:35)
[2018-12-07] MEDS: SILVER SULFADIAZINE 1% CREAM 25GM TOP SCH (08:55)
[2018-12-07] MEDS: NYSTATIN POWDER 15GM TOP SCH ×2 (08:55→12:22)
[2018-12-07] MEDS: INSULIN GLARGINE UD 100 UNITS/ML SYR SUBCUT SCH ×2 (08:56→21:38)
[2018-12-07 09:10] LABS: BG BASE EXCESS 8.1 mmol/L (-2.0-2.0); BG CARBOXYHEMOGLOBIN 0.9 % (0.5-1.5); BG DEOXYHEMOGLOBIN 2.6 % (0.0-5.0); BG FRACTION INSPIRED OXYGEN 40; BG HCO3 ACT 33.4 mmol/L (22.0-26.0); BG METHEMOGLOBIN 0.2 % (0.0-1.5); BG OXYGEN SATURATION 97.4 % (92.0-98.5); BG OXYHEMOGLOBIN 96.3 % (94.0-97.0); BG PH 7.434 (7.350-7.450); BG SAMPLE SITE RIGHT RADIAL; BG TIDAL VOLUME(mL) 550 mL; BG TOTAL HEMOGLOBIN 9.8 g/dL (12.0-18.0); BG VENT MODE VENT - A/C; BG VENT RATE 10 set
[2018-12-07 11:52] LABS: BG BASE EXCESS 5.7 mmol/L (-2.0-2.0); BG CARBOXYHEMOGLOBIN 0.4 % (0.5-1.5); BG DEOXYHEMOGLOBIN 9.7 % (0.0-5.0); BG FRACTION INSPIRED OXYGEN 40; BG HCO3 ACT 33.7 mmol/L (22.0-26.0); BG METHEMOGLOBIN 0.3 % (0.0-1.5); BG OXYGEN SATURATION 90.2 % (92.0-98.5); BG OXYHEMOGLOBIN 89.6 % (94.0-97.0); BG PH 7.313 (7.350-7.450); BG PO2 64.8 mmHg (75.0-100.0); BG PRESSURE SUPPORT 8; BG SAMPLE SITE RIGHT BRACHIAL; BG TOTAL HEMOGLOBIN 11.6 g/dL (12.0-18.0); BG VENT MODE VENT - CPAP
[2018-12-07] MEDS: MONTELUKAST SODIUM 10MG TABLET PO SCH (18:31)
[2018-12-08] VITALS (59 sets, daily range): BP systolic 88–141; BP diastolic 48–85
[2018-12-08] MEDS: IPRATROPIUM/ALBUTEROL 0.5-3(2.5)MG/3ML NEB HHN SCH ×6 (00:02→20:35)
[2018-12-08] MEDS: BLOOD SUGAR DIAGNOSTIC STRIP TEST SCH ×2 (00:44→05:21)
[2018-12-08] MEDS: SILDENAFIL CITRATE 20MG TABLET PO SCH ×3 (05:20→21:47)
[2018-12-08] MEDS: DILTIAZEM HCL 30MG TABLET PO SCH ×3 (05:21→21:49)
[2018-12-08] MEDS: INSULIN LISPRO 100 UNITS/ML SUBCUT SCH ×3 (05:24→12:00)
[2018-12-08 07:45] LABS: BASOPHILS % 0.4 % (0.0-2.0); HEMOGLOBIN. 10.3 g/dL (12.0-16.0); LYMPHOCYTES % 12.3 % (20.0-50.0); MEAN CORPUSCULAR HEMOGLOBIN 25.3 pg (28.0-32.0); MEAN CORPUSCULAR VOLUME 85.7 fL (81.0-99.0); MEAN PLATELET VOLUME 8.9 fl (7.4-10.4); MONOCYTES % 10.4 % (2.0-8.0); NEUTROPHILS % 74.9 % (40.0-76.0); PLATELET 263 x1000/uL (130-400); RED BLOOD CELL COUNT 4.08 mill/uL (4.2-5.4)
[2018-12-08] MEDS: LORATADINE 10MG TABLET PO SCH (08:49)
[2018-12-08] MEDS: FERROUS SULFATE 325MG TABLET PO SCH (08:49)
[2018-12-08] MEDS: LEVOTHYROXINE SODIUM 100MCG TABLET PO SCH (08:50)
[2018-12-08] MEDS: PREDNISONE 20MG TABLET PO SCH ×2 (08:50→19:26)
[2018-12-08] MEDS: FUROSEMIDE 40MG TABLET PO SCH (08:50)
[2018-12-08] MEDS: HEPARIN 5000 UNITS/ML VIAL SUBCUT SCH ×2 (08:52→21:44)
[2018-12-08] MEDS: FAMOTIDINE 20MG/2ML VIAL IV SCH (08:52)
[2018-12-08] MEDS: SILVER SULFADIAZINE 1% CREAM 25GM TOP SCH (08:53)
[2018-12-08] MEDS ORDERED: POTASSIUM CHLORIDE 20MEQ TABLET SR PO NR (09:15)
[2018-12-08] MEDS: INSULIN GLARGINE UD 100 UNITS/ML SYR SUBCUT SCH ×2 (11:00→21:48)
[2018-12-08] MEDS: LEVOFLOXACIN 750MG PREMIX 150 ML IV SCH (11:13)
[2018-12-08] MEDS: MONTELUKAST SODIUM 10MG TABLET PO SCH (19:26)
[2018-12-09] VITALS (45 sets, daily range): BP systolic 95–145; BP diastolic 50–80
[2018-12-09] MEDS: IPRATROPIUM/ALBUTEROL 0.5-3(2.5)MG/3ML NEB HHN SCH ×6 (00:25→19:59)
[2018-12-09 05:37] LABS: BASOPHILS % 0.3 % (0.0-2.0); EOSINOPHILS % 0.8 % (0.0-5.0); HEMATOCRIT. 34.4 % (36.0-48.0); HEMOGLOBIN. 10.2 g/dL (12.0-16.0); LYMPHOCYTES % 12.3 % (20.0-50.0); MEAN CORPUSCULAR HEMOGLOBIN 25.4 pg (28.0-32.0); MEAN CORPUSCULAR VOLUME 85.7 fL (81.0-99.0); MEAN PLATELET VOLUME 8.9 fl (7.4-10.4); MONOCYTES % 9.7 % (2.0-8.0); NEUTROPHILS % 76.9 % (40.0-76.0); PLATELET 288 x1000/uL (130-400); RED BLOOD CELL COUNT 4.02 mill/uL (4.2-5.4)
[2018-12-09] MEDS: SILDENAFIL CITRATE 20MG TABLET PO SCH ×3 (05:50→21:14)
[2018-12-09] MEDS: DILTIAZEM HCL 30MG TABLET PO SCH ×3 (05:52→21:14)
[2018-12-09] MEDS: DEXTROSE 5% WATER 1,000 ML IV SCH (05:52)
[2018-12-09] MEDS: BLOOD SUGAR DIAGNOSTIC STRIP TEST SCH ×4 (05:53→17:20)
[2018-12-09 06:27] LABS: CHLORIDE 113 mEq/L (98-107)
[2018-12-09 07:17] LABS: PHOSPHORUS 2.2 mg/dL (2.5-4.9)
[2018-12-09] MEDS: LEVOTHYROXINE SODIUM 100MCG TABLET PO SCH (08:02)
[2018-12-09 09:12] LABS: BG BASE EXCESS 11.4 mmol/L (-2.0-2.0); BG CARBOXYHEMOGLOBIN 0.5 % (0.5-1.5); BG FRACTION INSPIRED OXYGEN 40; BG HCO3 ACT 39.3 mmol/L (22.0-26.0); BG METHEMOGLOBIN 0.3 % (0.0-1.5); BG OXYHEMOGLOBIN 93.2 % (94.0-97.0); BG PH 7.355 (7.350-7.450); BG PO2 75.9 mmHg (75.0-100.0); BG PRESSURE SUPPORT 8; BG SAMPLE SITE RIGHT RADIAL; BG TOTAL HEMOGLOBIN 11.1 g/dL (12.0-18.0); BG VENT MODE VENT - CPAP
[2018-12-09] MEDS: PREDNISONE 20MG TABLET PO SCH ×2 (10:41→16:13)
[2018-12-09] MEDS: FAMOTIDINE 20MG/2ML VIAL IV SCH (10:41)
[2018-12-09] MEDS: HEPARIN 5000 UNITS/ML VIAL SUBCUT SCH ×2 (10:41→21:14)
[2018-12-09] MEDS: LORATADINE 10MG TABLET PO SCH (10:41)
[2018-12-09] MEDS: FERROUS SULFATE 325MG TABLET PO SCH (10:42)
[2018-12-09] MEDS: SILVER SULFADIAZINE 1% CREAM 25GM TOP SCH (10:43)
[2018-12-09] MEDS: INSULIN GLARGINE UD 100 UNITS/ML SYR SUBCUT SCH ×2 (11:06→21:17)
[2018-12-09] MEDS: LEVOFLOXACIN 750MG PREMIX 150 ML IV SCH (11:07)
[2018-12-09] MEDS: INSULIN LISPRO 100 UNITS/ML SUBCUT SCH ×3 (12:00→17:20)
[2018-12-09] MEDS ORDERED: POTASSIUM CHLORIDE INJ 40 MEQ in DEXT 5% WATER 250 ML IV ONE (16:00)
[2018-12-09] MEDS: MONTELUKAST SODIUM 10MG TABLET PO SCH (16:13)
[2018-12-09] MEDS: PANTOPRAZOLE SODIUM 40 MG/VIAL IV SCH (16:13)
[2018-12-09] MEDS ORDERED: KCL 20MEQ/100ML PREMIX 100 ML IV NR (18:00)
[2018-12-10] VITALS (33 sets, daily range): BP systolic 96–142; BP diastolic 48–81
[2018-12-10] MEDS: INSULIN LISPRO 100 UNITS/ML SUBCUT SCH ×5 (00:26→23:44)
[2018-12-10] MEDS: BLOOD SUGAR DIAGNOSTIC STRIP TEST SCH ×4 (00:27→17:25)
[2018-12-10] MEDS: IPRATROPIUM/ALBUTEROL 0.5-3(2.5)MG/3ML NEB HHN SCH ×6 (00:57→20:21)
[2018-12-10 05:25] LABS: BASOPHILS % 1.2 % (0.0-2.0); EOSINOPHILS % 0.7 % (0.0-5.0); HEMATOCRIT. 34.3 % (36.0-48.0); HEMOGLOBIN. 10.2 g/dL (12.0-16.0); LYMPHOCYTES % 11.4 % (20.0-50.0); MEAN CORPUSCULAR HEMOGLOBIN 25.3 pg (28.0-32.0); MEAN CORPUSCULAR VOLUME 85.3 fL (81.0-99.0); MEAN PLATELET VOLUME 8.8 fl (7.4-10.4); MONOCYTES % 11.5 % (2.0-8.0); NEUTROPHILS % 75.2 % (40.0-76.0); PLATELET 287 x1000/uL (130-400); RED BLOOD CELL COUNT 4.02 mill/uL (4.2-5.4); RED CELL DISTRIBUTION WIDTH 24.4 % (11.6-14.6)
[2018-12-10 05:39] LABS: CHLORIDE 112 mEq/L (98-107)
[2018-12-10 05:47] LABS: PHOSPHORUS 1.5 mg/dL (2.5-4.9)
[2018-12-10] MEDS: DILTIAZEM HCL 30MG TABLET PO SCH ×3 (05:51→21:54)
[2018-12-10] MEDS: SILDENAFIL CITRATE 20MG TABLET PO SCH ×3 (05:57→21:53)
[2018-12-10] MEDS: DEXTROSE 5% WATER 1,000 ML IV SCH (05:57)
[2018-12-10] MEDS ORDERED: POTASSIUM CHLORIDE 20MEQ/PACKET PO SCH (06:15)
[2018-12-10] MEDS ORDERED: POTASSIUM PHOS,M-BASIC-D-BASIC 20 MMOL in DEXT 5% WATER 243.3333 ML IV ONE (07:00)
[2018-12-10 07:04] LABS: BG BASE EXCESS 6.2 mmol/L (-2.0-2.0); BG CARBOXYHEMOGLOBIN 0.7 % (0.5-1.5); BG HCO3 ACT 33.2 mmol/L (22.0-26.0); BG METHEMOGLOBIN 0.3 % (0.0-1.5); BG OXYGEN SATURATION 96.4 % (92.0-98.5); BG OXYHEMOGLOBIN 95.4 % (94.0-97.0); BG PCO2 61.6 mmHg (35.0-45.0); BG PO2 90.6 mmHg (75.0-100.0); BG SAMPLE SITE RIGHT RADIAL; BG TIDAL VOLUME(mL) 550 mL; BG TOTAL HEMOGLOBIN 10.8 g/dL (12.0-18.0); BG VENT MODE VENT - SIMV; BG VENT RATE 8 set
[2018-12-10 07:05] LABS: BG DEOXYHEMOGLOBIN 3.6 % (0.0-5.0)
[2018-12-10] MEDS: PANTOPRAZOLE SODIUM 40 MG/VIAL IV SCH (08:39)
[2018-12-10] MEDS: LEVOTHYROXINE SODIUM 100MCG TABLET PO SCH (08:39)
[2018-12-10] MEDS: PREDNISONE 20MG TABLET PO SCH ×2 (08:39→17:24)
[2018-12-10] MEDS: FERROUS SULFATE 325MG TABLET PO SCH (08:39)
[2018-12-10] MEDS: LORATADINE 10MG TABLET PO SCH (08:40)
[2018-12-10] MEDS: HEPARIN 5000 UNITS/ML VIAL SUBCUT SCH ×2 (08:40→21:54)
[2018-12-10] MEDS: SILVER SULFADIAZINE 1% CREAM 25GM TOP SCH (08:41)
[2018-12-10] MEDS: LEVOFLOXACIN 750MG PREMIX 150 ML IV SCH (09:28)
[2018-12-10] MEDS: INSULIN GLARGINE UD 100 UNITS/ML SYR SUBCUT SCH ×2 (09:28→21:56)
[2018-12-10] MEDS: MONTELUKAST SODIUM 10MG TABLET PO SCH (17:24)
[2018-12-11] VITALS (35 sets, daily range): BP systolic 100–136; BP diastolic 36–73
[2018-12-11] MEDS: IPRATROPIUM/ALBUTEROL 0.5-3(2.5)MG/3ML NEB HHN SCH ×6 (00:04→20:38)
[2018-12-11] MEDS: BLOOD SUGAR DIAGNOSTIC STRIP TEST SCH ×5 (00:38→23:51)
[2018-12-11] MEDS: DEXTROSE 5% WATER 1,000 ML IV SCH (05:30)
[2018-12-11] MEDS: SILDENAFIL CITRATE 20MG TABLET PO SCH ×3 (05:37→21:44)
[2018-12-11] MEDS: INSULIN LISPRO 100 UNITS/ML SUBCUT SCH ×5 (05:37→23:50)
[2018-12-11] MEDS: DILTIAZEM HCL 30MG TABLET PO SCH ×3 (05:38→21:44)
[2018-12-11 05:41] LABS: BASOPHILS % 0.6 % (0.0-2.0); EOSINOPHILS % 0.4 % (0.0-5.0); HEMATOCRIT. 33.3 % (36.0-48.0); LYMPHOCYTES % 11.8 % (20.0-50.0); MEAN CORPUSCULAR HEMOGLOBIN 25.7 pg (28.0-32.0); MEAN CORPUSCULAR VOLUME 85.9 fL (81.0-99.0); MEAN PLATELET VOLUME 8.8 fl (7.4-10.4); NEUTROPHILS % 78.2 % (40.0-76.0); PLATELET 267 x1000/uL (130-400); RED BLOOD CELL COUNT 3.88 mill/uL (4.2-5.4); RED CELL DISTRIBUTION WIDTH 24.5 % (11.6-14.6)
[2018-12-11 06:17] LABS: CHLORIDE 109 mEq/L (98-107)
[2018-12-11 06:35] LABS: PHOSPHORUS 1.9 mg/dL (2.5-4.9)
[2018-12-11 08:11] LABS: BG BASE EXCESS 10.4 mmol/L (-2.0-2.0); BG CARBOXYHEMOGLOBIN 0.4 % (0.5-1.5); BG DEOXYHEMOGLOBIN 2.5 % (0.0-5.0); BG FRACTION INSPIRED OXYGEN 40; BG HCO3 ACT 37.6 mmol/L (22.0-26.0); BG METHEMOGLOBIN 0.2 % (0.0-1.5); BG OXYGEN SATURATION 97.5 % (92.0-98.5); BG OXYHEMOGLOBIN 96.9 % (94.0-97.0); BG PCO2 65.4 mmHg (35.0-45.0); BG PH 7.377 (7.350-7.450); BG PO2 98.4 mmHg (75.0-100.0); BG PRESSURE SUPPORT 16; BG SAMPLE SITE RIGHT RADIAL; BG TIDAL VOLUME(mL) 550 mL; BG TOTAL HEMOGLOBIN 10.5 g/dL (12.0-18.0); BG VENT MODE VENT - SIMV; BG VENT RATE 8 set
[2018-12-11] MEDS: FERROUS SULFATE 325MG TABLET PO SCH (08:52)
[2018-12-11] MEDS: LORATADINE 10MG TABLET PO SCH (08:52)
[2018-12-11] MEDS: LEVOTHYROXINE SODIUM 100MCG TABLET PO SCH (08:52)
[2018-12-11] MEDS: HEPARIN 5000 UNITS/ML VIAL SUBCUT SCH (08:52)
[2018-12-11] MEDS: PANTOPRAZOLE SODIUM 40 MG/VIAL IV SCH (08:58)
[2018-12-11] MEDS: PREDNISONE 20MG TABLET PO SCH ×2 (08:58→17:11)
[2018-12-11] MEDS: LEVOFLOXACIN 750MG PREMIX 150 ML IV SCH (09:15)
[2018-12-11] MEDS: SILVER SULFADIAZINE 1% CREAM 25GM TOP SCH (09:16)
[2018-12-11] MEDS ORDERED: POTASSIUM PHOS,M-BASIC-D-BASIC 15 MMOL in DEXT 5% WATER 245 ML IV NR (10:00)
[2018-12-11] MEDS: INSULIN GLARGINE UD 100 UNITS/ML SYR SUBCUT SCH ×2 (10:54→21:45)
[2018-12-11] MEDS ORDERED: SODIUM CHLORIDE 0.9% 250 ML IV SCH (15:15)
[2018-12-11] MEDS: MONTELUKAST SODIUM 10MG TABLET PO SCH (17:11)
[2018-12-12] VITALS (60 sets, daily range): BP systolic 90–166; BP diastolic 46–122
[2018-12-12] MEDS: IPRATROPIUM/ALBUTEROL 0.5-3(2.5)MG/3ML NEB HHN SCH ×6 (00:04→20:36)
[2018-12-12] MEDS: ACETAMINOPHEN 650MG/20.3ML UDC PO PRN ×2 (00:37→18:16)
[2018-12-12] MEDS: DILTIAZEM HCL 30MG TABLET PO SCH ×3 (05:32→22:09)
[2018-12-12] MEDS: SILDENAFIL CITRATE 20MG TABLET PO SCH ×3 (05:32→22:09)
[2018-12-12 05:50] LABS: HEMATOCRIT. 33.5 % (36.0-48.0); HEMOGLOBIN. 10.3 g/dL (12.0-16.0); MEAN CORPUSCULAR HEMOGLOBIN 26.3 pg (28.0-32.0); MEAN CORPUSCULAR VOLUME 85.8 fL (81.0-99.0); MEAN PLATELET VOLUME 8.7 fl (7.4-10.4); PLATELET 260 x1000/uL (130-400); RED BLOOD CELL COUNT 3.91 mill/uL (4.2-5.4); RED CELL DISTRIBUTION WIDTH 24.7 % (11.6-14.6)
[2018-12-12 05:55] LABS: INR 1.1; PROTHROMBIN TIME 10.8 sec (9.1-11.1)
[2018-12-12] MEDS: LEVOTHYROXINE SODIUM 100MCG TABLET PO SCH (07:50)
[2018-12-12 07:52] LABS: BG BASE EXCESS 10.2 mmol/L (-2.0-2.0); BG CARBOXYHEMOGLOBIN 0.4 % (0.5-1.5); BG DEOXYHEMOGLOBIN 2.5 % (0.0-5.0); BG METHEMOGLOBIN 0.3 % (0.0-1.5); BG OXYGEN SATURATION 97.5 % (92.0-98.5); BG OXYHEMOGLOBIN 96.8 % (94.0-97.0); BG PCO2 63.1 mmHg (35.0-45.0); BG PH 7.386 (7.350-7.450); BG PO2 105.1 mmHg (75.0-100.0); BG SAMPLE SITE RIGHT RADIAL; BG TIDAL VOLUME(mL) 550 mL; BG TOTAL HEMOGLOBIN 10.2 g/dL (12.0-18.0); BG VENT MODE VENT - SIMV; BG VENT RATE 8 set
[2018-12-12] MEDS: FERROUS SULFATE 325MG TABLET PO SCH (08:05)
[2018-12-12] MEDS: PREDNISONE 20MG TABLET PO SCH ×2 (08:05→18:16)
[2018-12-12] MEDS: LORATADINE 10MG TABLET PO SCH (08:05)
[2018-12-12 08:52] LABS: CHLORIDE 108 mEq/L (98-107)
[2018-12-12 08:58] LABS: PHOSPHORUS 2.2 mg/dL (2.5-4.9)
[2018-12-12] MEDS: PANTOPRAZOLE SODIUM 40 MG/VIAL IV SCH (09:17)
[2018-12-12] MEDS: LEVOFLOXACIN 750MG PREMIX 150 ML IV SCH (09:18)
[2018-12-12] MEDS: INSULIN GLARGINE UD 100 UNITS/ML SYR SUBCUT SCH ×2 (09:38→22:10)
[2018-12-12] MEDS ORDERED: DEXT 5%/0.45% NACL 1000ML 1,000 ML IV SCH (11:00)
[2018-12-12] MEDS: INSULIN LISPRO 100 UNITS/ML SUBCUT SCH ×2 (12:00→18:00)
[2018-12-12] MEDS: BLOOD SUGAR DIAGNOSTIC STRIP TEST SCH ×4 (12:00→23:55)
[2018-12-12] MEDS ORDERED: POTASSIUM PHOS,M-BASIC-D-BASIC 10 MMOL in DEXT 5% WATER 246.6667 ML IV NR (12:00)
[2018-12-12] MEDS ORDERED: FENTANYL CITRATE/PF 50MCG/ML 2ML VIAL ONE (12:04)
[2018-12-12] MEDS ORDERED: MIDAZOLAM HCL 5 MG/5 ML VIAL ONE (12:04)
[2018-12-12] MEDS ORDERED: MIDAZOLAM HCL 5 MG/5 ML VIAL IV PRN (12:36)
[2018-12-12] MEDS ORDERED: FENTANYL CITRATE/PF 50MCG/ML 2ML VIAL IV PRN (12:37)
[2018-12-12 13:05] LABS: PLATELET ESTIMATE NORMAL
[2018-12-12] MEDS ORDERED: LIDOCAINE HCL/PF 1% 2ML VIAL ONE (13:49)
[2018-12-12] MEDS ORDERED: ROCURONIUM BROMIDE 10MG/ML VIAL 5ML IV ONE (14:55)
[2018-12-12] MEDS ORDERED: MIDAZOLAM HCL 2 MG/2 ML VIAL ONE (14:55)
[2018-12-12] MEDS ORDERED: SODIUM CHLORIDE 0.9% 10ML VIAL ONE (16:12)
[2018-12-12] MEDS: SILVER SULFADIAZINE 1% CREAM 25GM TOP SCH (18:16)
[2018-12-12] MEDS: MONTELUKAST SODIUM 10MG TABLET PO SCH (18:16)
[2018-12-12] MEDS: METOCLOPRAMIDE HCL 10MG/2ML VIAL IV SCH (23:55)
[2018-12-13] VITALS (33 sets, daily range): BP systolic 93–133; BP diastolic 57–75
[2018-12-13] MEDS: IPRATROPIUM/ALBUTEROL 0.5-3(2.5)MG/3ML NEB HHN SCH ×7 (00:31→23:55)
[2018-12-13] MEDS: INSULIN LISPRO 100 UNITS/ML SUBCUT SCH ×5 (06:00→23:51)
[2018-12-13] MEDS: DILTIAZEM HCL 30MG TABLET PO SCH ×3 (06:00→21:06)
[2018-12-13] MEDS: SILDENAFIL CITRATE 20MG TABLET PO SCH ×3 (06:08→21:06)
[2018-12-13] MEDS: METOCLOPRAMIDE HCL 10MG/2ML VIAL IV SCH ×4 (06:08→23:47)
[2018-12-13] MEDS: BLOOD SUGAR DIAGNOSTIC STRIP TEST SCH ×4 (06:09→23:50)
[2018-12-13 06:10] LABS: BASOPHILS % 0.5 % (0.0-2.0); EOSINOPHILS % 0.6 % (0.0-5.0); HEMATOCRIT. 33.3 % (36.0-48.0); HEMOGLOBIN. 10.2 g/dL (12.0-16.0); LYMPHOCYTES % 12.7 % (20.0-50.0); MEAN CORPUSCULAR VOLUME 85.3 fL (81.0-99.0); MEAN PLATELET VOLUME 8.9 fl (7.4-10.4); MONOCYTES % 5.7 % (2.0-8.0); NEUTROPHILS % 80.5 % (40.0-76.0); PLATELET 263 x1000/uL (130-400); RED BLOOD CELL COUNT 3.91 mill/uL (4.2-5.4); RED CELL DISTRIBUTION WIDTH 24.4 % (11.6-14.6)
[2018-12-13 06:14] LABS: CHLORIDE 107 mEq/L (98-107)
[2018-12-13] MEDS: DEXTROSE 50% WATER 50ML SYRINGE IV PRN ×2 (06:17→11:45)
[2018-12-13 06:21] LABS: PHOSPHORUS 2.1 mg/dL (2.5-4.9)
[2018-12-13] MEDS: LORATADINE 10MG TABLET PO SCH (08:12)
[2018-12-13] MEDS: FERROUS SULFATE 325MG TABLET PO SCH (08:13)
[2018-12-13] MEDS: SILVER SULFADIAZINE 1% CREAM 25GM TOP SCH (08:13)
[2018-12-13] MEDS: PREDNISONE 20MG TABLET PO SCH (08:13)
[2018-12-13] MEDS: LEVOTHYROXINE SODIUM 100MCG TABLET PO SCH (08:13)
[2018-12-13] MEDS: PANTOPRAZOLE SODIUM 40 MG/VIAL IV SCH (08:13)
[2018-12-13 08:44] LABS: BG BASE EXCESS 8.1 mmol/L (-2.0-2.0); BG CARBOXYHEMOGLOBIN 0.8 % (0.5-1.5); BG DEOXYHEMOGLOBIN 1.3 % (0.0-5.0); BG FRACTION INSPIRED OXYGEN 40; BG HCO3 ACT 34.1 mmol/L (22.0-26.0); BG OXYGEN SATURATION 98.7 % (92.0-98.5); BG OXYHEMOGLOBIN 97.9 % (94.0-97.0); BG PCO2 55.7 mmHg (35.0-45.0); BG PH 7.405 (7.350-7.450); BG PRESSURE SUPPORT 16; BG SAMPLE SITE RIGHT RADIAL; BG TIDAL VOLUME(mL) 550 mL; BG TOTAL HEMOGLOBIN 10.4 g/dL (12.0-18.0); BG VENT MODE VENT - SIMV; BG VENT RATE 8 set
[2018-12-13] MEDS ORDERED: POTASSIUM PHOS,M-BASIC-D-BASIC 15 MMOL in DEXT 5% WATER 250 ML IV SCH (09:00)
[2018-12-13] MEDS: INSULIN GLARGINE UD 100 UNITS/ML SYR SUBCUT SCH ×2 (10:00→23:27)
[2018-12-13] MEDS ORDERED: LORAZEPAM 2MG/ML CPJ IV PRN (10:15)
[2018-12-13] MEDS ORDERED: INSULIN GLARGINE UD 100 UNITS/ML SYR SUBCUT NR (11:00)
[2018-12-13] MEDS: MONTELUKAST SODIUM 10MG TABLET PO SCH (17:06)
[2018-12-13] MEDS: HEPARIN 5000 UNITS/ML VIAL SUBCUT SCH (21:07)
[2018-12-14] VITALS (31 sets, daily range): BP systolic 90–134; BP diastolic 50–85
[2018-12-14] MEDS: IPRATROPIUM/ALBUTEROL 0.5-3(2.5)MG/3ML NEB HHN SCH ×5 (03:58→20:44)
[2018-12-14] MEDS: INSULIN LISPRO 100 UNITS/ML SUBCUT SCH ×3 (05:07→18:26)
[2018-12-14] MEDS: BLOOD SUGAR DIAGNOSTIC STRIP TEST SCH ×3 (05:07→18:23)
[2018-12-14 05:17] LABS: BASOPHILS % 1.4 % (0.0-2.0); EOSINOPHILS % 5.5 % (0.0-5.0); HEMATOCRIT. 33.6 % (36.0-48.0); HEMOGLOBIN. 10.2 g/dL (12.0-16.0); LYMPHOCYTES % 17.1 % (20.0-50.0); MEAN CORPUSCULAR HEMOGLOBIN 25.8 pg (28.0-32.0); MEAN CORPUSCULAR VOLUME 84.7 fL (81.0-99.0); MEAN PLATELET VOLUME 8.9 fl (7.4-10.4); MONOCYTES % 6.4 % (2.0-8.0); NEUTROPHILS % 69.6 % (40.0-76.0); PLATELET 232 x1000/uL (130-400); RED BLOOD CELL COUNT 3.97 mill/uL (4.2-5.4); RED CELL DISTRIBUTION WIDTH 25.4 % (11.6-14.6)
[2018-12-14] MEDS: METOCLOPRAMIDE HCL 10MG/2ML VIAL IV SCH ×3 (05:18→18:07)
[2018-12-14] MEDS: DILTIAZEM HCL 30MG TABLET PO SCH ×3 (05:18→21:42)
[2018-12-14 05:26] LABS: CHLORIDE 106 mEq/L (98-107)
[2018-12-14 05:31] LABS: PHOSPHORUS 2.3 mg/dL (2.5-4.9)
[2018-12-14] MEDS ORDERED: FUROSEMIDE 40MG/4ML VIAL IVP NR (08:30)
[2018-12-14] MEDS: PANTOPRAZOLE SODIUM 40 MG/VIAL IV SCH (08:55)
[2018-12-14] MEDS: PREDNISONE 20MG TABLET PO SCH (08:56)
[2018-12-14] MEDS: FERROUS SULFATE 325MG TABLET PO SCH (08:56)
[2018-12-14] MEDS: LEVOTHYROXINE SODIUM 100MCG TABLET PO SCH (08:56)
[2018-12-14] MEDS: LORATADINE 10MG TABLET PO SCH (08:56)
[2018-12-14] MEDS: SILDENAFIL CITRATE 20MG TABLET PO SCH ×3 (08:56→22:42)
[2018-12-14] MEDS: POTASSIUM CHLORIDE 20MEQ/PACKET PO SCH ×2 (08:57→18:06)
[2018-12-14] MEDS: HEPARIN 5000 UNITS/ML VIAL SUBCUT SCH ×2 (08:58→21:43)
[2018-12-14] MEDS: SILVER SULFADIAZINE 1% CREAM 25GM TOP SCH (09:00)
[2018-12-14] MEDS: SIMETHICONE 80MG TABLET CHEW PO SCH ×2 (12:52→21:42)
[2018-12-14] MEDS: MONTELUKAST SODIUM 10MG TABLET PO SCH (18:06)
[2018-12-14] MEDS: INSULIN GLARGINE UD 100 UNITS/ML SYR SUBCUT SCH (22:42)
[2018-12-15] VITALS (12 sets, daily range): BP systolic 112–144; BP diastolic 60–81
[2018-12-15] MEDS: IPRATROPIUM/ALBUTEROL 0.5-3(2.5)MG/3ML NEB HHN SCH ×6 (00:09→20:00)
[2018-12-15] MEDS: INSULIN LISPRO 100 UNITS/ML SUBCUT SCH ×4 (01:32→18:00)
[2018-12-15] MEDS: BLOOD SUGAR DIAGNOSTIC STRIP TEST SCH ×4 (06:00→18:11)
[2018-12-15] MEDS: LEVOTHYROXINE SODIUM 100MCG TABLET PO SCH (07:06)
[2018-12-15] MEDS: DILTIAZEM HCL 30MG TABLET PO SCH ×3 (07:06→21:42)
[2018-12-15] MEDS: SIMETHICONE 80MG TABLET CHEW PO SCH ×3 (07:06→21:41)
[2018-12-15] MEDS: SILDENAFIL CITRATE 20MG TABLET PO SCH ×3 (07:13→21:42)
[2018-12-15 07:37] LABS: BG BASE EXCESS 6.4 mmol/L (-2.0-2.0); BG CARBOXYHEMOGLOBIN 0.3 % (0.5-1.5); BG DEOXYHEMOGLOBIN 2.2 % (0.0-5.0); BG HCO3 ACT 32.3 mmol/L (22.0-26.0); BG METHEMOGLOBIN 0.1 % (0.0-1.5); BG OXYGEN SATURATION 97.8 % (92.0-98.5); BG OXYHEMOGLOBIN 97.4 % (94.0-97.0); BG PCO2 53.5 mmHg (35.0-45.0); BG PH 7.399 (7.350-7.450); BG PO2 110.1 mmHg (75.0-100.0); BG SAMPLE SITE RIGHT RADIAL; BG TIDAL VOLUME(mL) 550 mL; BG TOTAL HEMOGLOBIN 10.4 g/dL (12.0-18.0); BG VENT MODE VENT - SIMV; BG VENT RATE 8 set
[2018-12-15 07:46] LABS: CHLORIDE 106 mEq/L (98-107)
[2018-12-15 07:52] LABS: BASOPHILS % 0.9 % (0.0-2.0); EOSINOPHILS % 2.4 % (0.0-5.0); HEMATOCRIT. 32.2 % (36.0-48.0); HEMOGLOBIN. 10.1 g/dL (12.0-16.0); LYMPHOCYTES % 14.6 % (20.0-50.0); MEAN CORPUSCULAR HEMOGLOBIN 26.3 pg (28.0-32.0); MEAN CORPUSCULAR VOLUME 84.1 fL (81.0-99.0); MEAN PLATELET VOLUME 9.1 fl (7.4-10.4); MONOCYTES % 5.5 % (2.0-8.0); NEUTROPHILS % 76.6 % (40.0-76.0); PLATELET 220 x1000/uL (130-400); RED BLOOD CELL COUNT 3.83 mill/uL (4.2-5.4); RED CELL DISTRIBUTION WIDTH 25.4 % (11.6-14.6)
[2018-12-15] MEDS ORDERED: SODIUM PHOS,M-BASIC-D-BASIC 10 MM in DEXT 5% WATER 246.6667 ML IV NR (09:00)
[2018-12-15] MEDS: PANTOPRAZOLE SODIUM 40 MG/VIAL IV SCH (09:30)
[2018-12-15] MEDS: FERROUS SULFATE 325MG TABLET PO SCH (09:31)
[2018-12-15] MEDS: LORATADINE 10MG TABLET PO SCH (09:31)
[2018-12-15] MEDS: POTASSIUM CHLORIDE 20MEQ/PACKET PO SCH ×2 (09:31→16:58)
[2018-12-15] MEDS: HEPARIN 5000 UNITS/ML VIAL SUBCUT SCH ×2 (09:32→21:42)
[2018-12-15] MEDS: SILVER SULFADIAZINE 1% CREAM 25GM TOP SCH (09:42)
[2018-12-15] MEDS: PREDNISONE 20MG TABLET PO SCH (09:43)
[2018-12-15] MEDS: INSULIN GLARGINE UD 100 UNITS/ML SYR SUBCUT SCH ×2 (10:50→22:01)
[2018-12-15] MEDS: MONTELUKAST SODIUM 10MG TABLET PO SCH (16:58)
[2018-12-16] VITALS (12 sets, daily range): BP systolic 105–135; BP diastolic 52–72
[2018-12-16] MEDS: IPRATROPIUM/ALBUTEROL 0.5-3(2.5)MG/3ML NEB HHN SCH ×6 (00:15→21:43)
[2018-12-16] MEDS: INSULIN LISPRO 100 UNITS/ML SUBCUT SCH ×4 (06:00→17:07)
[2018-12-16 06:10] LABS: CHLORIDE 108 mEq/L (98-107)
[2018-12-16 06:13] LABS: HEMATOCRIT. 32.1 % (36.0-48.0); HEMOGLOBIN. 9.8 g/dL (12.0-16.0); MEAN CORPUSCULAR VOLUME 84.9 fL (81.0-99.0); MEAN PLATELET VOLUME 8.9 fl (7.4-10.4); PLATELET 179 x1000/uL (130-400); RED BLOOD CELL COUNT 3.78 mill/uL (4.2-5.4); RED CELL DISTRIBUTION WIDTH 25.3 % (11.6-14.6)
[2018-12-16 06:33] LABS: PHOSPHORUS 2.3 mg/dL (2.5-4.9)
[2018-12-16] MEDS: DILTIAZEM HCL 30MG TABLET PO SCH ×3 (06:44→22:06)
[2018-12-16] MEDS: BLOOD SUGAR DIAGNOSTIC STRIP TEST SCH ×4 (06:45→17:07)
[2018-12-16] MEDS: SIMETHICONE 80MG TABLET CHEW PO SCH ×3 (06:45→22:06)
[2018-12-16] MEDS: SILDENAFIL CITRATE 20MG TABLET PO SCH ×3 (06:45→22:06)
[2018-12-16] MEDS: POTASSIUM CHLORIDE 20MEQ/PACKET PO SCH (09:03)
[2018-12-16] MEDS: LORATADINE 10MG TABLET PO SCH (09:03)
[2018-12-16] MEDS: FERROUS SULFATE 325MG TABLET PO SCH (09:03)
[2018-12-16] MEDS: PANTOPRAZOLE SODIUM 40 MG/VIAL IV SCH (09:03)
[2018-12-16] MEDS: LEVOTHYROXINE SODIUM 100MCG TABLET PO SCH (09:04)
[2018-12-16] MEDS: HEPARIN 5000 UNITS/ML VIAL SUBCUT SCH ×2 (09:04→22:09)
[2018-12-16] MEDS: SILVER SULFADIAZINE 1% CREAM 25GM TOP SCH (09:05)
[2018-12-16] MEDS: INSULIN GLARGINE UD 100 UNITS/ML SYR SUBCUT SCH ×2 (11:05→22:00)
[2018-12-16] MEDS ORDERED: POTASSIUM PHOS,M-BASIC-D-BASIC 10 MMOL in DEXT 5% WATER 246.6667 ML IV NR (13:00)
[2018-12-16 15:23] LABS: PLATELET ESTIMATE NORMAL
[2018-12-16] MEDS: MONTELUKAST SODIUM 10MG TABLET PO SCH (17:07)
[2018-12-17] VITALS (12 sets, daily range): BP systolic 108–136; BP diastolic 63–77
[2018-12-17] MEDS: BLOOD SUGAR DIAGNOSTIC STRIP TEST SCH ×4 (00:31→17:41)
[2018-12-17] MEDS: IPRATROPIUM/ALBUTEROL 0.5-3(2.5)MG/3ML NEB HHN SCH ×6 (00:38→21:04)
[2018-12-17] MEDS: DILTIAZEM HCL 30MG TABLET PO SCH ×3 (05:33→22:11)
[2018-12-17] MEDS: LEVOTHYROXINE SODIUM 100MCG TABLET PO SCH (05:33)
[2018-12-17] MEDS: SILDENAFIL CITRATE 20MG TABLET PO SCH ×3 (05:34→22:10)
[2018-12-17] MEDS: INSULIN LISPRO 100 UNITS/ML SUBCUT SCH ×4 (05:39→17:41)
[2018-12-17] MEDS: SIMETHICONE 80MG TABLET CHEW PO SCH ×3 (06:18→22:10)
[2018-12-17 07:30] LABS: CHLORIDE 106 mEq/L (98-107)
[2018-12-17 08:10] LABS: HEMATOCRIT. 31.5 % (36.0-48.0); HEMOGLOBIN. 9.7 g/dL (12.0-16.0); MEAN CORPUSCULAR HEMOGLOBIN 26.3 pg (28.0-32.0); MEAN CORPUSCULAR VOLUME 84.9 fL (81.0-99.0); MEAN PLATELET VOLUME 8.9 fl (7.4-10.4); PLATELET 179 x1000/uL (130-400); RED BLOOD CELL COUNT 3.71 mill/uL (4.2-5.4); RED CELL DISTRIBUTION WIDTH 25.6 % (11.6-14.6)
[2018-12-17] MEDS: SILVER SULFADIAZINE 1% CREAM 25GM TOP SCH (09:10)
[2018-12-17] MEDS: PANTOPRAZOLE SODIUM 40 MG/VIAL IV SCH (09:10)
[2018-12-17] MEDS: LORATADINE 10MG TABLET PO SCH (09:11)
[2018-12-17] MEDS: HEPARIN 5000 UNITS/ML VIAL SUBCUT SCH ×2 (09:11→22:12)
[2018-12-17] MEDS: POTASSIUM CHLORIDE 20MEQ/PACKET PO SCH (09:11)
[2018-12-17] MEDS: FERROUS SULFATE 325MG TABLET PO SCH (09:11)
[2018-12-17] MEDS: INSULIN GLARGINE UD 100 UNITS/ML SYR SUBCUT SCH ×2 (09:12→22:00)
[2018-12-17 11:49] LABS: PHOSPHORUS 2.2 mg/dL (2.5-4.9)
[2018-12-17 14:14] LABS: PLATELET ESTIMATE NORMAL
[2018-12-17] MEDS ORDERED: POTASSIUM PHOS,M-BASIC-D-BASIC 10 MMOL in DEXT 5% WATER 246.6667 ML IV NR (16:30)
[2018-12-17] MEDS: MONTELUKAST SODIUM 10MG TABLET PO SCH (17:44)
[2018-12-18] VITALS (12 sets, daily range): BP systolic 114–130; BP diastolic 59–90
[2018-12-18] MEDS: IPRATROPIUM/ALBUTEROL 0.5-3(2.5)MG/3ML NEB HHN SCH ×6 (00:41→20:45)
[2018-12-18] MEDS: BLOOD SUGAR DIAGNOSTIC STRIP TEST SCH ×4 (01:11→17:51)
[2018-12-18] MEDS: INSULIN LISPRO 100 UNITS/ML SUBCUT SCH ×4 (01:12→17:51)
[2018-12-18] MEDS: LEVOTHYROXINE SODIUM 100MCG TABLET PO SCH (06:02)
[2018-12-18] MEDS: SIMETHICONE 80MG TABLET CHEW PO SCH ×3 (06:02→21:58)
[2018-12-18] MEDS: DILTIAZEM HCL 30MG TABLET PO SCH ×3 (06:03→21:58)
[2018-12-18] MEDS: SILDENAFIL CITRATE 20MG TABLET PO SCH ×3 (06:03→21:58)
[2018-12-18 07:55] LABS: BASOPHILS % 2.4 % (0.0-2.0); EOSINOPHILS % 5.5 % (0.0-5.0); LYMPHOCYTES % 22.3 % (20.0-50.0); MEAN CORPUSCULAR HEMOGLOBIN 25.9 pg (28.0-32.0); MEAN CORPUSCULAR VOLUME 85.1 fL (81.0-99.0); MEAN PLATELET VOLUME 9.1 fl (7.4-10.4); NEUTROPHILS % 63.8 % (40.0-76.0); PLATELET 161 x1000/uL (130-400); RED BLOOD CELL COUNT 3.87 mill/uL (4.2-5.4); RED CELL DISTRIBUTION WIDTH 25.9 % (11.6-14.6)
[2018-12-18 08:05] LABS: CHLORIDE 104 mEq/L (98-107)
[2018-12-18 09:21] LABS: BG BASE EXCESS 7.2 mmol/L (-2.0-2.0); BG CARBOXYHEMOGLOBIN 0.7 % (0.5-1.5); BG DEOXYHEMOGLOBIN 5.4 % (0.0-5.0); BG FRACTION INSPIRED OXYGEN 35; BG HCO3 ACT 33.5 mmol/L (22.0-26.0); BG METHEMOGLOBIN 0.3 % (0.0-1.5); BG OXYGEN SATURATION 94.5 % (92.0-98.5); BG OXYHEMOGLOBIN 93.6 % (94.0-97.0); BG PCO2 57.2 mmHg (35.0-45.0); BG PH 7.386 (7.350-7.450); BG PO2 73.4 mmHg (75.0-100.0); BG PRESSURE SUPPORT 10; BG SAMPLE SITE RIGHT RADIAL; BG TOTAL HEMOGLOBIN 10.7 g/dL (12.0-18.0); BG VENT MODE VENT - CPAP
[2018-12-18] MEDS: POTASSIUM CHLORIDE 20MEQ/PACKET PO SCH (09:26)
[2018-12-18] MEDS: LORATADINE 10MG TABLET PO SCH (09:26)
[2018-12-18] MEDS: FERROUS SULFATE 325MG TABLET PO SCH (09:26)
[2018-12-18] MEDS: PANTOPRAZOLE SODIUM 40 MG/VIAL IV SCH (09:26)
[2018-12-18] MEDS: SILVER SULFADIAZINE 1% CREAM 25GM TOP SCH (09:28)
[2018-12-18] MEDS: HEPARIN 5000 UNITS/ML VIAL SUBCUT SCH ×2 (10:46→21:57)
[2018-12-18] MEDS: ACETAMINOPHEN 650MG/20.3ML UDC PO PRN (11:44)
[2018-12-18] MEDS: MONTELUKAST SODIUM 10MG TABLET PO SCH (17:51)
[2018-12-19] VITALS (11 sets, daily range): BP systolic 107–150; BP diastolic 53–94
[2018-12-19] MEDS: IPRATROPIUM/ALBUTEROL 0.5-3(2.5)MG/3ML NEB HHN SCH ×6 (00:30→19:50)
[2018-12-19] MEDS: INSULIN LISPRO 100 UNITS/ML SUBCUT SCH ×5 (06:00→23:12)
[2018-12-19] MEDS: DILTIAZEM HCL 30MG TABLET PO SCH ×3 (06:17→21:08)
[2018-12-19] MEDS: SIMETHICONE 80MG TABLET CHEW PO SCH (06:17)
[2018-12-19] MEDS: SILDENAFIL CITRATE 20MG TABLET PO SCH ×3 (06:17→21:08)
[2018-12-19] MEDS: BLOOD SUGAR DIAGNOSTIC STRIP TEST SCH ×5 (06:57→23:12)
[2018-12-19] MEDS: LEVOTHYROXINE SODIUM 100MCG TABLET PO SCH (08:17)
[2018-12-19] MEDS: FERROUS SULFATE 325MG TABLET PO SCH (08:17)
[2018-12-19] MEDS: LORATADINE 10MG TABLET PO SCH (08:17)
[2018-12-19] MEDS: PANTOPRAZOLE SODIUM 40 MG/VIAL IV SCH (08:17)
[2018-12-19] MEDS: HEPARIN 5000 UNITS/ML VIAL SUBCUT SCH ×2 (08:18→21:07)
[2018-12-19] MEDS: SILVER SULFADIAZINE 1% CREAM 25GM TOP SCH (08:21)
[2018-12-19] MEDS: POTASSIUM CHLORIDE 20MEQ/PACKET PO SCH (08:22)
[2018-12-19 08:23] LABS: EOSINOPHILS % 4.3 % (0.0-5.0); HEMATOCRIT. 32.8 % (36.0-48.0); HEMOGLOBIN. 10.1 g/dL (12.0-16.0); MEAN CORPUSCULAR HEMOGLOBIN 26.1 pg (28.0-32.0); MEAN PLATELET VOLUME 8.6 fl (7.4-10.4); MONOCYTES % 6.6 % (2.0-8.0); NEUTROPHILS % 70.1 % (40.0-76.0); PLATELET 160 x1000/uL (130-400); RED BLOOD CELL COUNT 3.86 mill/uL (4.2-5.4); RED CELL DISTRIBUTION WIDTH 25.9 % (11.6-14.6)
[2018-12-19 08:43] LABS: CHLORIDE 104 mEq/L (98-107)
[2018-12-19] MEDS: MONTELUKAST SODIUM 10MG TABLET PO SCH (17:49)
[2018-12-19] MEDS: SIMETHICONE 40 MG/0.6 ML 30ML GT SCH ×2 (17:49→23:12)
[2018-12-20] VITALS (10 sets, daily range): BP systolic 113–171; BP diastolic 65–138
[2018-12-20] MEDS: IPRATROPIUM/ALBUTEROL 0.5-3(2.5)MG/3ML NEB HHN SCH ×6 (00:18→21:10)
[2018-12-20] MEDS: BLOOD SUGAR DIAGNOSTIC STRIP TEST SCH ×3 (05:10→17:18)
[2018-12-20] MEDS: INSULIN LISPRO 100 UNITS/ML SUBCUT SCH ×3 (05:10→17:18)
[2018-12-20] MEDS: DILTIAZEM HCL 30MG TABLET PO SCH ×3 (05:16→21:03)
[2018-12-20] MEDS: SILDENAFIL CITRATE 20MG TABLET PO SCH ×3 (05:16→21:02)
[2018-12-20] MEDS: SIMETHICONE 40 MG/0.6 ML 30ML GT SCH ×3 (05:17→17:41)
[2018-12-20 06:52] LABS: BASOPHILS % 1.7 % (0.0-2.0); EOSINOPHILS % 5.4 % (0.0-5.0); HEMATOCRIT. 32.3 % (36.0-48.0); HEMOGLOBIN. 9.9 g/dL (12.0-16.0); LYMPHOCYTES % 15.8 % (20.0-50.0); MEAN CORPUSCULAR HEMOGLOBIN 26.1 pg (28.0-32.0); MEAN CORPUSCULAR VOLUME 85.2 fL (81.0-99.0); MEAN PLATELET VOLUME 8.7 fl (7.4-10.4); MONOCYTES % 5.5 % (2.0-8.0); NEUTROPHILS % 71.6 % (40.0-76.0); PLATELET 151 x1000/uL (130-400); RED CELL DISTRIBUTION WIDTH 25.8 % (11.6-14.6)
[2018-12-20 07:23] LABS: CHLORIDE 104 mEq/L (98-107)
[2018-12-20] MEDS: FERROUS SULFATE 325MG TABLET PO SCH (08:19)
[2018-12-20] MEDS: LORATADINE 10MG TABLET PO SCH (08:19)
[2018-12-20] MEDS: LEVOTHYROXINE SODIUM 100MCG TABLET PO SCH (08:19)
[2018-12-20] MEDS: POTASSIUM CHLORIDE 20MEQ/PACKET PO SCH (08:20)
[2018-12-20] MEDS: SILVER SULFADIAZINE 1% CREAM 25GM TOP SCH (08:20)
[2018-12-20] MEDS: PANTOPRAZOLE SODIUM 40 MG/VIAL IV SCH (08:20)
[2018-12-20] MEDS: HEPARIN 5000 UNITS/ML VIAL SUBCUT SCH ×2 (08:20→21:00)
[2018-12-20] MEDS: MONTELUKAST SODIUM 10MG TABLET PO SCH (17:41)
[2018-12-21] VITALS (13 sets, daily range): BP systolic 101–146; BP diastolic 52–89
[2018-12-21] MEDS: SIMETHICONE 40 MG/0.6 ML 30ML GT SCH ×4 (00:32→17:40)
[2018-12-21] MEDS: IPRATROPIUM/ALBUTEROL 0.5-3(2.5)MG/3ML NEB HHN SCH ×3 (00:34→20:29)
[2018-12-21] MEDS: BLOOD SUGAR DIAGNOSTIC STRIP TEST SCH ×4 (01:00→17:28)
[2018-12-21] MEDS: INSULIN LISPRO 100 UNITS/ML SUBCUT SCH ×4 (01:00→17:28)
[2018-12-21] MEDS: SILDENAFIL CITRATE 20MG TABLET PO SCH ×3 (06:44→21:21)
[2018-12-21] MEDS: DILTIAZEM HCL 30MG TABLET PO SCH (06:44)
[2018-12-21] MEDS: LEVOTHYROXINE SODIUM 100MCG TABLET PO SCH (08:26)
[2018-12-21] MEDS: LORATADINE 10MG TABLET PO SCH (08:26)
[2018-12-21] MEDS: FERROUS SULFATE 325MG TABLET PO SCH (08:27)
[2018-12-21] MEDS: SILVER SULFADIAZINE 1% CREAM 25GM TOP SCH (08:27)
[2018-12-21] MEDS: HEPARIN 5000 UNITS/ML VIAL SUBCUT SCH ×2 (08:27→21:20)
[2018-12-21] MEDS: PANTOPRAZOLE SODIUM 40 MG/VIAL IV SCH (08:27)
[2018-12-21] MEDS: POTASSIUM CHLORIDE 20MEQ/PACKET PO SCH (08:28)
[2018-12-21] MEDS: DILTIAZEM HCL 60MG TABLET PO SCH ×2 (13:42→21:21)
[2018-12-21] MEDS: MONTELUKAST SODIUM 10MG TABLET PO SCH (17:40)
[2018-12-22] VITALS: BP 132/66
== END 2018-12-22 06:13 | DRG 4 ==
LOC: ER 21:08 → 6WST 11-27 01:31 → EDBEDREQ 11-27 01:33 → EDBEDREQTM 11-27 01:33 → ENRESERV 11-27 02:22 → CVICU 11-30 07:46 → 5EST 12-14 14:34
PROVIDERS: ADMIT Internal Medicine; ATTEND Internal Medicine
PROC: 0JBQ0ZZ Excision of Right Foot Subcutaneous Tissue and Fascia, Open Approach (ICD-10-PCS; 2018-11-29)
PROC: 5A1955Z Respiratory Ventilation, Greater than 96 Consecutive Hours (ICD-10-PCS; 2018-11-30)
PROC: 02HV33Z Insertion of Infusion Device into Superior Vena Cava, Percutaneous Approach (ICD-10-PCS; 2018-11-30)
PROC: B548ZZA Ultrasonography of Superior Vena Cava, Guidance (ICD-10-PCS; 2018-11-30)
PROC: 0BH17EZ Insertion of Endotracheal Airway into Trachea, Via Natural or Artificial Opening (ICD-10-PCS; 2018-11-30)
PROC: 0W9B3ZZ Drainage of Left Pleural Cavity, Percutaneous Approach (ICD-10-PCS; 2018-12-01)
PROC: 0B110F4 Bypass Trachea to Cutaneous with Tracheostomy Device, Open Approach (ICD-10-PCS; principal; 2018-12-12)
PROC: 0GBJ0ZZ Excision of Thyroid Gland Isthmus, Open Approach (ICD-10-PCS; 2018-12-12)
PROC: 0DH63UZ Insertion of Feeding Device into Stomach, Percutaneous Approach (ICD-10-PCS; 2018-12-12)
PROC: 0B21XFZ Change Tracheostomy Device in Trachea, External Approach (ICD-10-PCS; 2018-12-19)
PROC: 0JB50ZZ Excision of Left Neck Subcutaneous Tissue and Fascia, Open Approach (ICD-10-PCS; 2018-12-19)
PROC: 0JB40ZZ Excision of Right Neck Subcutaneous Tissue and Fascia, Open Approach (ICD-10-PCS; 2018-12-19)
DX: A41.52 Sepsis due to Pseudomonas (principal); R57.9 Shock, unspecified; J86.9 Pyothorax without fistula; G93.40 Encephalopathy, unspecified; I50.33 Acute on chronic diastolic (congestive) heart failure; J15.1 Pneumonia due to Pseudomonas; R13.10 Dysphagia, unspecified; E44.0 Moderate protein-calorie malnutrition; N17.9 Acute kidney failure, unspecified; I13.0 Hypertensive heart and chronic kidney disease with heart failure and stage 1 through stage 4 chronic kidney disease, or unspecified chronic kidney disease; E11.22 Type 2 diabetes mellitus with diabetic chronic kidney disease; J96.02 Acute respiratory failure with hypercapnia; J44.0 Chronic obstructive pulmonary disease with (acute) lower respiratory infection; I27.20 Pulmonary hypertension, unspecified; Z68.42 Body mass index [BMI] 45.0-49.9, adult; E03.9 Hypothyroidism, unspecified; D64.9 Anemia, unspecified; M06.9 Rheumatoid arthritis, unspecified; E78.5 Hyperlipidemia, unspecified; E11.621 Type 2 diabetes mellitus with foot ulcer; E11.51 Type 2 diabetes mellitus with diabetic peripheral angiopathy without gangrene; E11.65 Type 2 diabetes mellitus with hyperglycemia; E66.01 Morbid (severe) obesity due to excess calories; L30.4 Erythema intertrigo; E83.39 Other disorders of phosphorus metabolism; R19.7 Diarrhea, unspecified; E11.42 Type 2 diabetes mellitus with diabetic polyneuropathy; E87.0 Hyperosmolality and hypernatremia; E87.6 Hypokalemia; L97.518 Non-pressure chronic ulcer of other part of right foot with other specified severity; G47.33 Obstructive sleep apnea (adult) (pediatric); I07.1 Rheumatic tricuspid insufficiency; L98.9 Disorder of the skin and subcutaneous tissue, unspecified; J45.40 Moderate persistent asthma, uncomplicated; K21.9 Gastro-esophageal reflux disease without esophagitis; N18.9 Chronic kidney disease, unspecified; T38.0X5A Adverse effect of glucocorticoids and synthetic analogues, initial encounter; Z68.43 Body mass index [BMI] 50.0-59.9, adult; Z78.1 Physical restraint status; Z79.51 Long term (current) use of inhaled steroids; Z79.890 Hormone replacement therapy; Z82.5 Family history of asthma and other chronic lower respiratory diseases; Z91.19 Patient's noncompliance with other medical treatment and regimen; Z79.84 Long term (current) use of oral hypoglycemic drugs; Z79.899 Other long term (current) drug therapy; Z88.8 Allergy status to other drugs, medicaments and biological substances; Y92.89 Other specified places as the place of occurrence of the external cause
CPT/HCPCS: 32555; 36415; 36569; 36600; 71045; 71250; 71275; 73630; 76770; 76937; 80048; 80061; 82040; 82375; 82550; 82805; 82962; 83036; 83605; 83615; 83735; 83880; 84100; 84134; 84443; 84478; 84484; 85027; 85379; 87015; 87045; 87070; 87077; 87186; 87427; 87449; 88108; 88312; 89055; 92523; 93005; 93306; 93308; 93970; 94002; 94003; 94640; 97110; 97162; 97164; 97166; 97530; 99152; 99285; A6261; C1725; C1893; C9113; J0330; J0696; J1644; J1815; J1940; J1956; J2060; J2250; J2405; J2543; J2704; J2765; J2920; J3010; J3480; J3490; J7040; J7050; J7060; J7070; J7512; J7608; J7611; J7620; J8610; Q9967; A4315; G0500